=== PATIENT | male | born 1970 | race Caucasian/White ===

== ENCOUNTER 2019-06-27 16:59 | Inpatient (IN) | payer OTHER ==
[2019-06-27] MEDS ORDERED: VANCOMYCIN 1 GM/VIAL ONE (17:51)
[2019-06-27] MEDS ORDERED: NA CHLORIDE 0.9% 2,000 ML ONE (17:52)
[2019-06-27] MEDS ORDERED: NA CHLORIDE 0.9% 250 ML ONE (17:52)
[2019-06-27] MEDS ORDERED: ACETAMINOPHEN 500 MG TAB ONE (18:08)
--- NOTE | 2019-06-27 18:09 | RAD REPORT ---
EXAM DESCRIPTION: CT - Head Brain Wo Cont - 06/27/2019 6:03 pm CLINICAL HISTORY: MENTAL STATUS CHANGE Headache, drowsiness COMPARISON: HEAD BRAIN W O CONTRAST dated 05/18/2010 TECHNIQUE: All CT scans are performed using dose optimization technique as appropriate and may inclu de automated exposure control or mA/KV adjustment according to patient size. FINDINGS: No intracranial hemorrhage, hydrocephalus or extra-axial fluid collection.No areas of brai n edema or evidence of midline shift. The paranasal sinuses and mastoids are clear. The calvarium is intact. IMPRESSION: No acute intracranial abnormality.
[2019-06-27 18:15] LABS: Absolute Lymphocytes (CBC) 0.4 K/uL (0.7-4.9); Basophils % 0.1 % (0-1.3); Hematocrit 46.2 % (39.6-49.0); Lymphocytes % 2.4 % (15.3-44.8); MPV 8.9 fL (7.6-11.3); RBC Red Blood Cell Count 5.11 M/uL (4.33-5.43)
[2019-06-27 18:17] LABS: Protime INR 1.44
[2019-06-27 18:26] LABS: Bilirubin Direct 0.4 mg/dL (0-0.2); Bilirubin Total 1.3 mg/dL (0.2-1.0); Potassium 3.4 mmol/L (3.5-5.1); Protein, Total 7.5 g/dL (6.4-8.2); Troponin (Emerg Dept Use Only) 0.29 ng/mL (0.0-0.045)
[2019-06-27] MEDS ORDERED: ONDANSETRON 4 MG/2 ML VIAL ONE (18:28)
[2019-06-27 18:41] LABS: Blood Morphology Comment NOT SEEN (NOT SEEN); Platelet Estimate DECR
--- NOTE | 2019-06-27 18:41 | EDPHYS ---
Physician Documentation [facility] Name: Faizan Banegas Age: 49 yrs Sex: Male : 1970 Arrival Date: 06/27/2019 Time: 17:01 Bed 7 Private MD: ED Physician Tan Ang HPI: 06/26 18:00 This 49 yrs old Male presents to ER via Wheelchair with complaints of Leg jr8 Swelling, Fever. 18:00 The patient reports fever, with an emergency department temperature of 102.4 degrees jr8 Fahrenheit. Onset: The symptoms/episode began/occurred acutely, today. Modifying factors: there are no obvious modifying factors. Associated signs and symptoms: Pertinent positives: altered mental status,\E\ swelling and erythema to right leg. Severity of symptoms: At their worst the symptoms were moderate in the emergency department the symptoms are unchanged. The patient has not experienced similar symptoms in the past. The patient has not recently seen a physician. Family stated that he was acting normal yesterday after work. Had no rash to right lower leg. Today altered with fever and red rash and swelling to right leg . Historical: - Allergies: 17:32 No Known Allergies; iw - PMHx: 17:32 Atrial Fib; Cellulitis; iw - Immunization history:: Adult Immunizations up to date. - Social history:: Smoking status: Patient denies any tobacco usage or history of. ROS: 18:37 Eyes: Negative for injury, pain, redness, and discharge, ENT: Negative for injury, jr8 pain, and discharge, Neck: Negative for injury, pain, and swelling, Cardiovascular: Negative for chest pain, palpitations, and edema, Respiratory: Negative for shortness of breath, cough, wheezing, and pleuritic chest pain, Abdomen/GI: Negative for abdominal pain, nausea, vomiting, diarrhea, and constipation, Back: Negative for injury and pain, MS/Extremity: Negative for injury and deformity. 18:37 Constitutional: Positive for fever, malaise. 18:37 Skin: Positive for cellulitis. 18:37 Neuro: Positive for altered mental status. Exam: 18:37 Eyes: Pupils equal round and reactive to light, extra-ocular motions intact. Lids and jr8 lashes normal. Conjunctiva and sclera are non-icteric and not injected. Cornea within normal limits. Periorbital areas with no swelling, redness, or edema. ENT: Nares patent. No nasal discharge, no septal abnormalities noted. Tympanic membranes are normal and external auditory canals are clear. Oropharynx with no redness, swelling, or masses, exudates, or evidence of obstruction, uvula midline. Mucous membranes moist. Neck: Trachea midline, no thyromegaly or masses palpated, and no cervical lymphadenopathy. Supple, full range of motion without nuchal rigidity, or vertebral point tenderness. No Meningismus. Respiratory: Lungs have equal breath sounds bilaterally, clear to auscultation and percussion. No rales, rhonchi or wheezes noted. No increased work of breathing, no retractions or nasal flaring. Abdomen/GI: Soft, non-tender, with normal bowel sounds. No distension or tympany. No guarding or rebound. No evidence of tenderness throughout. Back: No spinal tenderness. No costovertebral tenderness. Full range of motion. MS/ Extremity: Pulses equal, no cyanosis. Neurovascular intact. Full, normal range of motion. 18:37 Cardiovascular: Rate: tachycardic, Rhythm: irregularly irregular, Pulses: Pulses are 2+ in right radial artery, right dorsalis pedis artery, left radial artery and left dorsalis pedis artery. Heart sounds: normal, normal S1and S2, Edema: 1+ edema to level of left midcalf, left ankle, left foot, right midcalf, right ankle and right foot, JVD: is not appreciated. 18:37 Skin: cellulitis, that is moderate, on the right lower leg from ankle to knee . 18:56 ECG was reviewed by the Attending Physician. [facility] Vital Signs: 17:34 BP 145 / 99; Pulse 110; Resp 20 S; Temp 102.4(O); Pulse Ox 97% on R/A; Weight 99.79 kg; iw 18:27 BP 119 / 97; Pulse 111; Resp 28; Pulse Ox 96% on R/A; em 19:46 BP 107 / 72; Pulse 114; Resp 20; Pulse Ox 98% ; ll1 19:51 Temp 99.8; ll1 MDM: 17:41 Patient medically screened. [facility] 18:37 Data reviewed: vital signs, nurses notes, lab test result(s), EKG, radiologic studies, [facility] CT scan, plain films. Data interpreted: Pulse oximetry: on room air is 96 %. Interpretation: normal. Counseling: I had a detailed discussion with the patient and/or guardian regarding: the historical points, exam findings, and any diagnostic results supporting the discharge/admit diagnosis, lab results, radiology results, the need for further work-up and treatment in the hospital. Physician consultation: Jose Chamorro was called at 18:39, was contacted at 18:39, regarding admission, to the ICU, consult, patient's condition, Dr. Chamorro notified and will be passing on to Dr. Fierro upon arrival . 19:41 Post IV fluid administration reassessment for Sepsis: Sepsis focused reassessment [facility] complete. Focused Assessment performed: June 27, 2019 at 19:41 Heart: Irregular rhythm noted. Lungs: Noted to be clear bilaterally. Capillary refill examination performed. Capillary refill noted to be < 2 seconds. Peripheral pulse evaluation performed. Peripheral pulses noted to be 2+ slightly diminished. Skin examination performed. Skin noted to have normal turgor. Current vital signs reviewed: Yes. Passive leg raise examination performed. Neuro: Neurological examination did not improve from previous exam. Cardio: Cardiovascular examination improved from previous exam. Heart rate and blood pressure have improved. 06/26 17:42 Order name: Urine Culture [facility] 06/26 17:42 Order name: Basic Metabolic Panel [facility] 06/26 17:42 Order name: Blood Culture Adult (2) [facility] 06/26 17:42 Order name: CBC with Diff [facility] 06/26 17:42 Order name: CPK [facility] 06/26 17:42 Order name: Lactate [facility] 06/26 17:42 Order name: LFT's [facility] 06/26 17:42 Order name: Lipase; Complete Time: 18:31 [facility] 06/26 17:42 Order name: Procalcitonin; Complete Time: 18:47 [facility] 06/26 17:42 Order name: Protime (+inr); Complete Time: 18:21 [facility] 06/26 17:42 Order name: Ptt, Activated; Complete Time: 18:21 [facility] 06/26 17:42 Order name: Troponin (emerg Dept Use Only); Complete Time: 18:31 [facility] 06/26 17:42 Order name: Urine Microscopic Only [facility] 06/26 17:42 Order name: AMMONIA; Complete Time: 19:00 [facility] 06/26 17:43 Order name: Urine Culture EDMS 06/26 17:43 Order name: Basic Metabolic Panel; Complete Time: 18:31 EDMS 06/26 17:43 Order name: Blood Culture EDMS 06/26 17:43 Order name: CBC with Automated Diff; Complete Time: 18:47 EDMS 06/26 17:43 Order name: Creatine Phosphokinase; Complete Time: 18:31 EDMS 06/26 17:43 Order name: Lactate; Complete Time: 18:26 EDMS 06/26 17:43 Order name: Liver (Hepatic) Function; Complete Time: 18:31 EDMS 06/26 17:53 Order name: Glucose, Ancillary Testing; Complete Time: 17:58 EDMS 06/26 18:41 Order name: Manual Differential; Complete Time: 18:47 EDMS 06/26 23:56 Order name: Troponin I; Complete Time: 23:59 EDMS 06/27 03:57 Order name: Lactate EDMS 06/27 05:11 Order name: Blood Culture EDMS 06/27 05:19 Order name: CBC with Automated Diff EDMS 06/27 05:45 Order name: Protime (+INR) EDMS 06/27 05:47 Order name: Comprehensive Metabolic Panel EDMS 06/27 05:47 Order name: Phosphorus EDMS 06/26 17:42 Order name: Chest Single View XRAY; Complete Time: 19:22 [facility] 06/26 17:42 Order name: Accucheck; Complete Time: 18:31 8 06/26 17:42 Order name: Cardiac monitoring; Complete Time: 18:31 [facility] 06/26 17:42 Order name: EKG - Nurse/Tech; Complete Time: 18:06 [facility] 06/26 17:42 Order name: IV Saline Lock - Large Bore; Complete Time: 18:06 8 06/26 17:42 Order name: Labs collected and sent; Complete Time: 18:05 8 06/26 17:42 Order name: O2 Per Protocol; Complete Time: 18:05 8 06/26 17:42 Order name: O2 Sat Monitoring; Complete Time: 18:05 8 06/26 17:42 Order name: CT Head Brain wo Cont; Complete Time: 18:52 8 06/26 23:13 Order name: US; Complete Time: 23:13 EDMS 06/27 05:47 Order name: Magnesium EDMS 06/27 05:47 Order name: Thyroid Stimulating Hormone EDMS EC:56 Rate is 122 beats/min. Rhythm is irregularly irregular, A fib with No ectopy. QRS [place] jr8 is Normal. QRS interval is normal at 92 msec. QT interval is prolonged at 487 msec. Q waves are Present in leads III, aVF, V1, V2, V3. T waves are Normal. No ST changes noted. Clinical impression: Acute pericarditis. Interpreted by me. Reviewed by me. Administered Medications: 18:18 Drug: Acetaminophen 1000 mg Route: PO; em 19:49 Follow up: Response: No adverse reaction; RASS: Alert and Calm (0) ll1 18:18 Drug: Cefepime 1 grams Route: IVPB; Rate: 200 ml/hr; Infused Over: 30 mins; Site: right em antecubital; 19:25 Follow up: IV Status: Completed infusion; IV Intake: 200ml lw1 18:20 Drug: NS 0.9% (30 ml/kg) 30 ml/kg Route: IV; Rate: bolus; Site: right antecubital; em 18:22 Drug: Zofran (Ondansetron) 4 mg Route: IVP; Site: right antecubital; em 19:43 Follow up: Response: No adverse reaction; Nausea is decreased ll1 19:27 Drug: vancoMYCIN 1 grams Route: IVPB; Infused Over: 2 hrs; Site: right antecubital; lw1 19:43 Follow up: Response: No adverse reaction; IV Status: Completed infusion ll1 19:30 Drug: Lovenox 1 mg/kg Route: Sub-Q; Site: right lower abdomen; ll1 06/27 04:30 Follow up: Response: No adverse reaction 1 06/26 19:30 Drug: Potassium Chloride 40 mEq Route: PO; ll1 06/27 04:29 Follow up: Response: No adverse reaction 1 Point of Care Testing: Blood Glucose: 06/26 17:40 Blood Glucose: 131 mg/dL; em Ranges: Critical Glucose Levels:Adult <50 mg/dl or >400 mg/dl <40 mg/dl or >180 mg/dl Disposition: 06/27 11:04 Co-signature as Attending Physician, Tan Ang MD I agree with the assessment and chadd plan of care. Disposition: 06/27/19 18:40 Hospitalization ordered by Alexandrea Fierro for Inpatient Admission. Preliminary diagnosis are Severe sepsis, Cellulitis of right lower limb, Non-ST elevation (NSTEMI) myocardial infarction. - Bed requested for Telemetry/MedSurg (Inpatient). - Status is Inpatient Admission. bp - Condition is Fair. - Problem is new. - Symptoms have improved. Signatures: Dispatcher [employer] EDMS Avril Mccray bd Adilene Fontenot, RN Kavya Samayoa RN Tan Judge MD MD cha Munoz, Edgar, RN Anai Kingsley, RN PRICILA iw Cody Younger, PA PA jr8 Nikko Vazquez RN Vin Nunez RN RN ll1 Chen Lozoya RN RN lw1 Corrections: (The following items were deleted from the chart) 06/26 19:30 18:40 Hospitalization Ordered by Alexandrea Fierro MD for Inpatient Admission. Preliminary diagnosis is Severe sepsis; Cellulitis of right lower limb; Non-ST elevation (NSTEMI) myocardial infarction. Bed requested for Intensive Care Unit. Status is Inpatient Admission. Condition is Fair. Problem is new. Symptoms have improved. jr8 06/27 09:11 06/26 19:30 06/27/2019 18:40 Hospitalization Ordered by Alexandrea Fierro MD for Inpatient dw Admission. Preliminary diagnosis is Severe sepsis; Cellulitis of right lower limb; Non-ST elevation (NSTEMI) myocardial infarction. Bed requested for [facility] ER HOLD. Status is Inpatient Admission. Condition is Fair. Problem is new. Symptoms have improved. 06/27 09:12 09:11 06/27/2019 18:40 Hospitalization Ordered by Alexandrea Fierro MD for Inpatient bd Admission. Preliminary diagnosis is Severe sepsis; Cellulitis of right lower limb; Non-ST elevation (NSTEMI) myocardial infarction. Bed requested for Telemetry/MedSurg (Inpatient). Status is Inpatient Admission. Condition is Fair. Problem is new. Symptoms have improved. dw 09:12 09:12 06/27/2019 18:40 Hospitalization Ordered by Alexandrea Fierro MD for Inpatient dw Admission. Preliminary diagnosis is Severe sepsis; Cellulitis of right lower limb; Non-ST elevation (NSTEMI) myocardial infarction. Bed requested for Telemetry/MedSurg (Inpatient). Status is Inpatient Admission. Condition is Fair. Problem is new. Symptoms have improved. bd 10:41 09:12 06/27/2019 18:40 Hospitalization Ordered by Alexandrea Fierro MD for Inpatient bp Admission. Preliminary diagnosis is Severe sepsis; Cellulitis of right lower limb; Non-ST elevation (NSTEMI) myocardial infarction. Bed requested for Telemetry/MedSurg (Inpatient). Status is Inpatient Admission. Condition is Fair. Problem is new. Symptoms have improved. dw
--- NOTE | 2019-06-27 18:41 | ER ---
Nurse's Notes [facility] Name: Faizan Banegas Age: 49 yrs Sex: Male : 1970 Arrival Date: 06/27/2019 Time: 17:01 Bed 7 Private MD: Diagnosis: Severe sepsis;Cellulitis of right lower limb;Non-ST elevation (NSTEMI) myocardial infarction Presentation: 06/26 17:31 Chief complaint: Patient's son or daughter states: last night got home from work around iw 830 pm and pt was not really responding to him, pt has been asleep all night and most of day has not been out of bed, fever started today, also noticed redness to RLE today, has hx of lymphedema. Coronavirus screen: The patient has NOT traveled to [place] in the past 14 days. Proceed with normal triage procedures. Ebola Screen: Patient negative for fever greater than or equal to 101.5 degrees Fahrenheit, and additional compatible Ebola Virus Disease symptoms Patient denies exposure to infectious person. Patient denies travel to an Ebola-affected area in the 21 days before illness onset. No symptoms or risks identified at this time. Risk Assessment: Do you want to hurt yourself or someone else? Patient reports no desire to harm self or others. 17:31 Method Of Arrival: Wheelchair iw 17:31 Acuity: CHRISTO 2 iw 17:35 Initial Sepsis Screen: Does the patient meet any 2 criteria? Temp <36.0*C (96.8*F)) or iw > 38.3*C (100.9*F). HR > 90 bpm. Does the patient have a suspected source of infection? Yes: Skin breakdown/wound. 19:48 Onset of symptoms is unknown. ll1 Historical: - Allergies: 17:32 No Known Allergies; iw - PMHx: 17:32 Atrial Fib; Cellulitis; iw - Immunization history:: Adult Immunizations up to date. - Social history:: Smoking status: Patient denies any tobacco usage or history of. Screenin:40 Abuse screen: Denies threats or abuse. no apparent signs noted. Nutritional screening: em No deficits noted. Tuberculosis screening: No symptoms or risk factors identified. Fall Risk None identified. Assessment: 17:40 General: Appears in no apparent distress. obese, Behavior is cooperative, drowsy, em Smells of urine. Pain: Denies pain. Neuro: Level of Consciousness is awake, stuporous. Cardiovascular: Denies chest pain, Capillary refill < 3 seconds Patient's skin is warm and dry. Rhythm is atrial fibrillation. Respiratory: Airway is patent Respiratory effort is even, unlabored, Respiratory pattern is regular, symmetrical. GI: Abdomen is round Patient currently denies nausea. Derm: Skin is intact, is healthy with good turgor, Skin is pink, warm \T\ dry. redness and swelling noted to right lower leg. Musculoskeletal: Capillary refill < 3 seconds, Range of motion: intact in all extremities. 18:01 Reassessment: wheeled to CT via stretcher. em 18:18 Reassessment: became nauseated and vomited bile, provider notified, received order for em Zofran 4 mg IV. 19:44 Reassessment: No changes from previously documented assessment. Patient and/or family ll1 updated on plan of care and expected duration. Pain level reassessed. Patient is alert, oriented x 3, equal unlabored respirations, skin warm/dry/pink. To bedside commode with liquid brown stool, approximately 200 ml. Tolerated well. Back to bed, repositioned. No further N/V. Awaiting ICU bed assignment. Family at bedside. Vital Signs: 17:34 BP 145 / 99; Pulse 110; Resp 20 S; Temp 102.4(O); Pulse Ox 97% on R/A; Weight 99.79 kg; iw 18:27 BP 119 / 97; Pulse 111; Resp 28; Pulse Ox 96% on R/A; em 19:46 BP 107 / 72; Pulse 114; Resp 20; Pulse Ox 98% ; ll1 19:51 Temp 99.8; ll1 Vitals: 19:46 Cardiac Rhythm Assessment Atrial fibrillation. ll1 ED Course: 17:01 Patient arrived in ED. as 17:32 Triage completed. iw 17:34 Arm band placed on. iw 17:36 Ponce Marrero, PRICILA is Primary Nurse. em 17:40 First set of blood cultures drawn by me. jb1 17:41 Tan Ang MD is Attending Physician. chadd 17:41 Cody Younger PA is PHCP. jr8 17:49 Patient has correct armband on for positive identification. Placed in gown. Bed in low iw position. Side rails up X2. 17:55 Second set of blood cultures drawn by me. jb1 18:00 Initial lab(s) drawn, by me, sent to lab. Inserted saline lock: 20 gauge in right jb1 antecubital area, using aseptic technique. Blood collected. 18:00 EKG done, by ED staff, reviewed by Cody DALY. jb1 18:07 CT Head Brain wo Cont In Process Unspecified. EDMS 18:34 Chest Single View XRAY In Process Unspecified. EDMS 18:39 Alexandrea Fierro MD is Hospitalizing Provider. jr8 19:05 IV discontinued, intact, bleeding controlled, Pressure dressing applied. jb1 19:05 Inserted saline lock: 22 gauge in right forearm, using aseptic technique. jb1 21:49 No provider procedures requiring assistance completed. IV is patent, with fluids rv infusing freely, with good blood return, Flushed right forearm Patient admitted, IV remains in place. 21:56 Ultrasound completed. Patient tolerated well. sg3 Administered Medications: 18:18 Drug: Acetaminophen 1000 mg Route: PO; em 19:49 Follow up: Response: No adverse reaction; RASS: Alert and Calm (0) ll1 18:18 Drug: Cefepime 1 grams Route: IVPB; Rate: 200 ml/hr; Infused Over: 30 mins; Site: right em antecubital; 19:25 Follow up: IV Status: Completed infusion; IV Intake: 200ml lw1 18:20 Drug: NS 0.9% (30 ml/kg) 30 ml/kg Route: IV; Rate: bolus; Site: right antecubital; em 18:22 Drug: Zofran (Ondansetron) 4 mg Route: IVP; Site: right antecubital; em 19:43 Follow up: Response: No adverse reaction; Nausea is decreased ll1 19:27 Drug: vancoMYCIN 1 grams Route: IVPB; Infused Over: 2 hrs; Site: right antecubital; lw1 19:43 Follow up: Response: No adverse reaction; IV Status: Completed infusion ll1 19:30 Drug: Lovenox 1 mg/kg Route: Sub-Q; Site: right lower abdomen; ll1 03 04:30 Follow up: Response: No adverse reaction ll1 06/26 19:30 Drug: Potassium Chloride 40 mEq Route: PO; ll1 06/27 04:29 Follow up: Response: No adverse reaction ll1 Point of Care Testing: Blood Glucose: 06/26 17:40 Blood Glucose: 131 mg/dL; em Ranges: Intake: 19:25 IV: 200ml; Total: 200ml. lw1 Outcome: 18:40 Decision to Hospitalize by Provider. jr8 21:50 Admitted to ER Hold. Please see [facility] for further documentation. rv 21:50 Condition: good 21:50 Instructed on the need for admit, Demonstrated understanding of instructions. 06/27 10:41 Patient left the ED. bp Signatures: Dispatcher [employer] EDMS LongMomo obrien jb1 Tan Ang MD MD cha Munoz, Edgar, RN RN em Margarita De La Fuente Irene RN RN Cody Lagos PA PA jr8 Nikko Vazquez RN RN bp Elvira Wong sg3 Trevor Castanon RN RN rv Lewis, Lynsay, RN RN ll1 Chen Lozoya RN RN lw1 Corrections: (The following items were deleted from the chart) 06/26 19:12 17:40 General: Appears in no apparent distress. obese, Behavior is cooperative, drowsy, em Smells of urine. em 19:12 17:40 Derm: Skin is intact, is healthy with good turgor, Skin is pink, warm \T\ dry. em em
--- NOTE | 2019-06-27 19:13 | RAD REPORT ---
EXAM DESCRIPTION: RAD - Chest Single View - 06/27/2019 6:29 pm CLINICAL HISTORY: FEVER Chest pain. COMPARISON: Chest Single View dated 08/28/2015; Chest Single View dated 08/14/2015; Chest Single View d ated 08/11/2015; Chest Single View dated 08/10/2015 FINDINGS: Portable technique limits examination quality. Mild interstitial opacities are present bilaterally. The heart is mildly enlarged in size. No displac ed fractures. IMPRESSION: Mild CHF.
[2019-06-27] MEDS ORDERED: ENOXAPARIN 100 MG/ML SYR SQ ONE (19:29)
[2019-06-27] MEDS ORDERED: POTASSIUM CL SA 10 MEQ TAB PO ONE (19:29)
[2019-06-27] MEDS ORDERED: PIPER/TAZO/NS 4.5gm 4.5 GM/100 ML BAG IVPB ONE (19:37)
[2019-06-27] MEDS ORDERED: HYDROCORTISONE SUC 100 MG INJ IV ONE (19:39)
[2019-06-27 22:25] VITALS: BMI 31.1
[2019-06-27] MEDS ORDERED: HYDROCORTISONE SUC 100 MG INJ ONE (22:39)
[2019-06-27] MEDS ORDERED: PIPERACIL/TAZO 4.5 GM VIAL IV ONE (22:40)
[2019-06-27] MEDS ORDERED: NA CHLORIDE 0.9% 100 ML IV ONE (22:40)
--- NOTE | 2019-06-27 23:11 | RAD REPORT ---
EXAM DESCRIPTION: US - Extremity Venous Uni Ltd - 06/27/2019 9:58 pm CLINICAL HISTORY: DVT Leg swelling and edema. COMPARISON: Extrem Venous W Compress Francisco J dated 08/28/2015 FINDINGS: Right lower extremity venous system was interrogated with Doppler technique. Normal flow, compressibility and augmentation was noted. There is no DVT present. IMPRESSION: No evidence of right lower extremity deep venous thrombosis.
[2019-06-28] MEDS ORDERED: NA CHLORIDE 0.9% 2,000 ML ONE (00:44)
[2019-06-28] MEDS ORDERED: ACETAMINOPHEN 650MG/RECT SUPP RECT PRN (00:49)
[2019-06-28] MEDS: NA CHLORIDE 0.9% 1,000 ML IV SCH ×4 (00:49→21:30)
[2019-06-28] MEDS: PIPER/TAZO/NS 4.5gm 4.5 GM/100 ML BAG IVPB SCH ×3 (02:00→13:50)
[2019-06-28] MEDS ORDERED: VANCOMYCIN 1.75 GM in NA CHLORIDE 0.9% 500 ML IVPB SCH ×2 (02:00→10:00)
[2019-06-28] MEDS ORDERED: PIPERACIL/TAZO 4.5 GM VIAL IV ONE (02:34)
[2019-06-28] MEDS ORDERED: NA CHLORIDE 0.9% 100 ML IV ONE (02:34)
[2019-06-28 05:11] LABS: Absolute Lymphocytes (CBC) 0.3 K/uL (0.7-4.9); Basophils % 0.2 % (0-1.3); Hematocrit 43.3 % (39.6-49.0); Lymphocytes % 2.4 % (15.3-44.8); MPV 8.9 fL (7.6-11.3); RBC Red Blood Cell Count 4.73 M/uL (4.33-5.43)
--- NOTE | 2019-06-28 05:32 | P.HP ---
Certification for Inpatient Patient admitted to: Inpatient With expected LOS: >2 Midnights Patient will require the following post-hospital care: None Practitioner: I am a practitioner with admitting privileges, knowledge of patient current condition, hospital course, and medical plan of care. Services: Services provided to patient in accordance with Admission requirements found in Title 42 Section 412.3 of the Code of Federal Regulations Patient History Date of Service: 06/27/19 Reason for admission: Right lower extremity cellulitis with septic shock History of Present Illness: Patient is a 49-year-old gentleman who has a history of morbid obesity status post gastric bypass surgery. Patient has lost over 220 lb. He had been doing well up until 24 hr ago when his son noticed that he was not acting like himself. He was more lethargic and he would wake up around dinner time. When his son started he did answers questions but he went right back to sleep. His son thought that was bizarre because patient normally is wide awake till midnight. The next morning patient was acting the same way. Patient had EMS called and he was brought to the hospital. In the emergency room patient was found to have cellulitis of the right lower extremity and septic shock. Patient will be admitted to the hospital for further evaluation. Allergies No Known Drug Allergies Allergy (Verified 08/19/14 04:14) Unknown No Known Allergies Allergy (Uncoded 08/28/15 20:19) Unknown Home Medications: Atorvastatin Calcium [Lipitor*] 20 mg PO BEDTIME 08/10/15 Lisinopril/Hydrochlorothiazide [Zestoretic 20-25 mg Tablet] 1 tab PO DAILY 08/09 Metformin HCl [Glucophage] 1 tab PO BID 08/10/15 Rivaroxaban [Xarelto] 20 mg PO BEDTIME 08/10/15 Amox/Clavulanate [Augmentin 875-125 Tab] 1 each PO BID #20 tab 08/31/15 - Past Medical/Surgical History Diabetic: Yes -: cellulitis -: a fib -: htn -: DM -: sleep apnea -: left knee sx -: posterior neck biopsy - Family History Mother Medical History: Hypertension - Social History Smoking Status: Unknown if ever smoked Review of Systems 10-point ROS is otherwise unremarkable Physical Examination - Vital Signs Temperature: 98.7 F Blood Pressure: 116/72 Pulse: 98 Respirations: 24 Pulse Ox (%): 97 - Physical Exam General: Alert, In no apparent distress, Oriented x3, Confused HEENT: Atraumatic, Normocephalic Neck: Supple, 2+ carotid pulse no bruit, JVD not distended, No Thyromegaly Respiratory: Clear to auscultation bilaterally, Normal air movement Cardiovascular: Normal pulses, Regular rate/rhythm, Normal S1 S2, No murmurs Gastrointestinal: Normal bowel sounds, Soft and benign, Non-distended, No tenderness, No rebound, No guarding Musculoskeletal: No clubbing Integumentary: Skin lesion, Tenderness/swelling, Erythema, Warmth Neurological: Normal strength at 5/5 x4 extr, Normal tone, Sensation intact, Cranial nerves 3-12 intact, Normal reflexes 2+, Abnormal gait - Studies Laboratory Data (last 24 hrs) 06/27/19 17:55: PT 16.7 H, INR 1.44, APTT 35.2 06/27/19 17:55: WBC 16.5 H, Hgb 15.3, Hct 46.2, Plt Count 151 L 06/27/19 17:55: Sodium 134 L, Potassium 3.4 L, BUN 24 H, Creatinine 1.31 H, Glucose 118 H, Total Bilirubin 1.3 H, AST 39 H, ALT 24, Alkaline Phosphatase 65 , Lipase 82 Assessment & Plan - Problems (Diagnosis) (1) Septic shock Current Visit: Yes Status: Acute (2) Cellulitis of leg, right Current Visit: No Status: Acute (3) Atrial fibrillation Onset Date: 08/29/15 Current Visit: No Status: Chronic (4) Dehydration Onset Date: 08/11/15 Current Visit: No Status: Acute (5) Diabetes mellitus Onset Date: 08/11/15 Current Visit: No Status: Acute (6) Lymphedema of left lower extremity Onset Date: 08/29/15 Current Visit: No Status: Acute (7) Morbid obesity Current Visit: No Status: Acute (8) Sleep apnea Current Visit: No Status: Acute - Plan 1. Continue with IV antibiotic 2. Continue with local wound care 3. Wound care consultation 4. Gentle IV hydration 5. Monitor CBC 6. Strict blood sugar monitoring 7. Pain control 8. GI and DVT prophylaxis Discharge Plan: Home Plan to discharge in: Greater than 2 days - Advance Directives Does patient have a Living Will: No Does patient have a Durable POA for Healthcare: No - Code Status/Comfort Care Code Status Assessed: Yes Code Status: Full Code Critical Care: No Time Spent Managing PTS Care (In Minutes): 45
[2019-06-28 05:40] LABS: Protime INR 1.23
[2019-06-28 05:41] LABS: Urine Amorphous Sediment 1+ /HPF (NONE SEEN); Urine Culture Reflex Order NOT NEEDED; Urine RBC <5 /HPF (NONE SEEN); Urine Urothelial Cells <5 /HPF (NONE SEEN)
[2019-06-28 05:42] LABS: Urine Bacteria 20-50 /HPF (NONE SEEN)
[2019-06-28 05:47] LABS: Albumin 2.6 g/dL (3.4-5.0); Magnesium 1.7 mg/dL (1.8-2.4); Phosphorus 2.2 mg/dL (2.5-4.9); Potassium 3.6 mmol/L (3.5-5.1); Protein, Total 6.7 g/dL (6.4-8.2); Thyroid Stimulating Hormone 0.472 uIU/mL (0.360-3.740)
[2019-06-28] MEDS ORDERED: POTASSIUM PHOS 30 MM in NA CHLORIDE 0.9% 500 ML IV ONE (05:59)
[2019-06-28] MEDS ORDERED: Magnesium Sulfate 2gm IVPB 2 G/50 ML BAG IV ONE ×2 (05:59→06:23)
[2019-06-28] MEDS ORDERED: HYDROCORTISONE SUC 100 MG INJ IV SCH (06:00)
[2019-06-28] MEDS ORDERED: HYDROCORTISONE SUC 100 MG INJ ONE (06:24)
[2019-06-28] MEDS: POTASSIUM 25 MEQ EFFERV TAB PO SCH ×2 (06:35→09:00)
[2019-06-28] MEDS ORDERED: ENOXAPARIN 40 MG/0.4 ML SQ ONE (08:44)
[2019-06-28] MEDS ORDERED: POTASSIUM 25 MEQ EFFERV TAB ONE (08:44)
[2019-06-28] MEDS ORDERED: NA CHLORIDE 0.9% 1,000 ML ONE (08:44)
[2019-06-28] MEDS ORDERED: ENOXAPARIN 40 MG/0.4 ML SQ SCH (09:00)
[2019-06-28] MEDS: ONDANSETRON 4 MG/2 ML VIAL IV PRN ×2 (11:21→18:46)
--- NOTE | 2019-06-28 15:34 | EKG ---
Test Date: 2019-06-27 Test Time: 17:43:24 Loss Mitigation Specialist: JASSIT MEASUREMENT RESULTS: Intervals: Rate: 122 PA: QRSD: 92 QT: 342 QTc: 487 [place]: P: PA: QRS: -21 T: 41 INTERPRETIVE STATEMENTS: Atrial fibrillation with rapid ventricular response Inferior infarct, age undetermined Anterior infarct, age undetermined Abnormal ECG Compared to ECG 08/28/2015 16:49:31 No significant changes Electronically Signed On 06-28-19 15:33:19 HEEL WASHER STRINGING MACHINE OPERATOR by Taiwo Mooney
[2019-06-28] MEDS: VANCOMYCIN 1.75 GM in NA CHLORIDE 0.9% 500 ML IVPB SCH (15:40)
[2019-06-28] MEDS: ACETAMINOPHEN 500 MG TAB PO PRN (18:53)
--- NOTE | 2019-06-28 19:32 | CON ---
History Of Present Illness: Mr. Banegas is 49. He comes to the hospital, confused, disoriented. His EKG showed atrial fib and his cardiac enzymes are abnormal. All of Mr. Banegas' EKGs show AFib that are in our hospital record. I believe he has been deemed a chronic AFib patient sometime ago. He underwent a gastric sleeve surgery and his weight decreased from in the mid 400s to what it is today 217 pounds. I do not think he has seen me in at least 4 or 5 years , so we are not 100% sure he has been in AFib. The entire time we will have to investigate our office records and try to obtain other EKGs. In any event, he is not bothered by chest pain or palpitations. He was brought in by his family because he appeared to be confused and disoriented and he has signs and symptoms of septicemia with cellulitis of his right leg. He has had numerous episodes of cellulitis in the past. He does not use tobacco. Does not have dyslipidemia or diabetes. Physical Examination: General: He is alert, oriented, pleasant, not in distress. Vital Signs: 5 feet 10 inches, 217 pounds. Blood pressure 124/77, pulse 94, respirations 18. Lungs: Clear. Heart: Seems to be fairly regular, although a little bit faster than usual. Distal pulses are palpable. There is redness and tenderness and extra warmth of the skin on his right calf anterior and posterior. Diagnostic Data: His electrocardiogram shows AFib. No infarction, injury, or ischemia. Laboratory Data: Reveals a troponin of 0.18 and 0.29. His procalcitonin level was elevated. Impression: I think the atrial fibrillation is chronic. With his age of 49 with hypertension, he has A CHADsVASc score high enough to justify giving him chronic anticoagulation, something he is not on now. I am not sure we should attempt to reestablish sinus rhythm at this point. I think his atrial fibrillation is chronic. Regarding his troponins, their elevation could be all due to the procalcitonin or to the sepsis as indicated by the procalcitonin and by the other physical findings so doing the echocardiogram and nuclear stress test are very worthwhile things to do in the case of Mr. Banegas. We will schedule those for tomorrow. CHIRAG Voice ID: [id number] Report ID: [id number] MTDD
--- NOTE | 2019-06-28 19:56 | PN ---
Date of Progress Note: 06/28/2019 Subjective: The patient is seen and examined. Chart reviewed and case discussed with RN. Family at the bedside. Treatment plan explained, all questions answered. Patient asking for some water. He has not had any further nausea or vomiting. Medications: List reviewed. Physical Examination: Vital Signs: Temperature 97.6, heart rate 96, blood pressure 117/78, respirations 21, O2 of 96% on r oom air. General: Awake, alert, oriented x3, in some mild distress due to pain, ill-appearing obese male. BM I 31.1. CV: S1, S2. Regular rate and rhythm. Peripheral pulses present. Respiratory: Moving air well bilaterally. No wheezing or stridor. No use of accessory muscles. Gastrointestinal: Abdomen is soft, nontender, nondistended. Positive bowel sounds. No guarding or rigidity. Extremities: No clubbing or cyanosis. Patient has right lower extremity edema. Neurologic: Cranial nerves 2 through 12 intact grossly. No focal neurological deficit. Speech is n ormal. Skin: Patient has erythema of the right lower extremity, swelling, no pain to palpation, and does fe el warm to touch. Laboratory Data: Sodium 137, potassium 3.6, chloride 108, CO2 of 21, BUN 23, creatinine 1.13, glucos e 113. Lactate 1.1. Calcium 7.4. Phosphorus 2.2. Magnesium 1.7. AST 42, ALT 25. Troponin 0.18. Albumin 2.6. Procalcitonin was 8.49. TSH 0.472. WBC 14.6, hemoglobin and hematocrit 14.3 and 43.3 , platelets 113. Blood cultures are pending. Imaging: Doppler sonogram is negative for right lower extremity DVT. Chest x-ray on personal review shows mild CHF. Head CT scan is negative for any acute changes. Assessment: A 49-year-old male with 1.Septic shock. The patient's blood pressure improved with IV fluid resuscitation, currently in the 1 teens. We will continue to monitor. Patient has high white blood cell count, elevated procalcito natalie, and troponin leak. 2.Cellulitis of the right lower extremity. We will demarcate leg and continue with IV antibiotics. Cultures have been obtained. Continue to elevate right lower extremity. We will switch IV antibiot ics from Zosyn to cefepime as the patient has some elevated kidney function to avoid further nephroto xicity with vancomycin. 3.Hypokalemia, corrected. We will continue to monitor. 4.Hypophosphatemia. We will replace and monitor. 5.Hypomagnesemia. We will replace and monitor. 6.Elevated liver enzyme, possibly fatty liver disease. 7.Elevated troponin level likely due to septic shock and congestive heart failure. Consult Cardiolo gy. 8.Congestive heart failure, seems to be new onset. There is no history of previous congestive heart failure. Echocardiogram from 2016 showed an EF of 59%. We will obtain echocardiogram. 9.Acute kidney injury, creatinine now improved, likely due to sepsis. 10.Deep vein thrombosis prophylaxis, addressed. Patient is on Lovenox. Plan: We will continue to monitor closely. Plan as above, likely discharge in the next 48 to 72 denise rs depending on clinical improvement. /DAVID Voice ID: [id number] Report ID: [id number]
[2019-06-28] MEDS ORDERED: CEFEPIME 2 GM in NA CHLORIDE 0.9% 100 ML IV SCH (21:00)
[2019-06-28] MEDS: ENOXAPARIN 100 MG/ML SYR SQ SCH (21:30)
[2019-06-28] MEDS: CEFEPIME/SWI 2gm 2 GM/20 ML SYR IVP SCH (21:31)
[2019-06-29 04:38] LABS: Absolute Lymphocytes (CBC) 0.5 K/uL (0.7-4.9); Basophils % 0.1 % (0-1.3); Hematocrit 38.7 % (39.6-49.0); Lymphocytes % 6.6 % (15.3-44.8); MPV 8.9 fL (7.6-11.3); RBC Red Blood Cell Count 4.22 M/uL (4.33-5.43)
[2019-06-29 04:52] LABS: Potassium 3.8 mmol/L (3.5-5.1)
[2019-06-29 04:53] LABS: Albumin 2.4 g/dL (3.4-5.0); Bilirubin Total 0.5 mg/dL (0.2-1.0); Protein, Total 6.2 g/dL (6.4-8.2)
[2019-06-29 06:00] LABS: Magnesium 2.5 mg/dL (1.8-2.4); Phosphorus 1.7 mg/dL (2.5-4.9)
[2019-06-29] MEDS ORDERED: POTASSIUM PHOS IN 0.9 % NACL 15 MMOL/250 ML BAG IV ONE (07:00)
[2019-06-29] MEDS ORDERED: REGADENOSON 0.4 MG/5 ML SYR IV ONE (08:18)
[2019-06-29] MEDS: ENOXAPARIN 100 MG/ML SYR SQ SCH ×2 (08:37→21:22)
[2019-06-29] MEDS: CEFEPIME/SWI 2gm 2 GM/20 ML SYR IVP SCH ×2 (08:37→21:26)
[2019-06-29] MEDS: VANCOMYCIN 1.75 GM in NA CHLORIDE 0.9% 500 ML IVPB SCH (08:38)
[2019-06-29] MEDS: POTASSIUM 25 MEQ EFFERV TAB PO SCH (08:39)
[2019-06-29] MEDS: ONDANSETRON 4 MG/2 ML VIAL IV PRN ×2 (09:54→16:36)
[2019-06-29] MEDS: HYDROCODONE/APAP 7.5/325 MG TAB PO PRN ×2 (12:31→21:21)
[2019-06-29] MEDS: NA CHLORIDE 0.9% 1,000 ML IV SCH ×2 (12:31→16:36)
--- NOTE | 2019-06-29 13:06 | ECHO ---
HEIGHT: 5 ft 10 in WEIGHT: 217 lb 0 oz DATE OF STUDY: 06/29/[address]: Ellyn Munroe MD 2-DIMENSIONAL: YES M.MODE: YES DOPPLER: YES COLOR FLOW: YES TDS: PORTABLE: DEFINITY: BUBBLE STUDY: DIAGNOSIS: CONGESTIVE HEART FAILURE, NEW ONSET CARDIAC HISTORY: CATHERIZATION: NO SURGERY: NO PROSTHETIC VALVE: NO PACEMAKER: NO MEASUREMENTS (cm) DIASTOLIC (NORMALS) SYSTOLIC (NORMALS) IVSd 1.2 (0.6-1.2) LA Diam 4.0 (1.9-4.0) LVEF 63% LVIDd 4.7 (3.5-5.7) LVIDs 3.1 (2.0-3.5) %FS 34% LVPWd 1.2 (0.6-1.2) Ao Diam 2.9 (2.0-3.7) 2 DIMENSIONAL ASSESSMENT: RIGHT ATRIUM: NORMAL LEFT ATRIUM: NORMAL RIGHT VENTRICLE: NORMAL LEFT VENTRICLE: NORMAL TRICUSPID VALVE: NORMAL MITRAL VALVE: NORMAL PULMONIC VALVE: NORMAL AORTIC VALVE: NORMAL PERICARDIAL EFFUSION: NONE AORTIC ROOT: NORMAL LEFT VENTRICULAR WALL MOTION: NORMAL DOPPLER/COLOR FLOW: NORMAL COMMENTS: ATRIAL FIBRILLATION. NORMAL LEFT ATRIUM SIZE. NORMAL LEFT VENTRICULAR SIZE AND FUNCTION. NO WALL MOTION ABNORMALITY. NO THROMBUS. TECHNOLOGIST: SKYE LU
--- NOTE | 2019-06-29 13:12 | PN ---
Mr. Banegas was seen by Dr. Mooney on 06/28/2019. He has what appears to be chronic atrial fibrillat ion. Anticoagulation was suggested. He had sepsis, elevated procalcitonin, which explained his elev ated troponin. However, because of his risk factors and his atrial fibrillation and his troponin, an echocardiogram and a stress test have been ordered. Both of those are pending. He remains in atria l fibrillation. He is on Lovenox for now. We will see what the echo and stress test shows before shona harris any final decisions. His heart rate today is 93. He is afebrile. ZAHEER/DAVID Voice ID: [id number] Report ID: [id number]
--- NOTE | 2019-06-29 15:14 | RAD REPORT ---
EXAM DESCRIPTION: NM - Rest Stress Cardiac Imaging - 06/29/2019 3:04 pm CLINICAL HISTORY: Chest pain. COMPARISON: None. TECHNIQUE: The patient was administered approximately 10mCi of Tc 99m Sestamibi prior to resting SPE CT imaging of the heart. The patient was then administered approximately 30 mCi of Tc 99m Sestamibi f ollowing exercise or pharmacologic stress. Multiplanar SPECT images were reviewed. FINDINGS: There is uniformity of radiotracer uptake involving the entire left ventricular myocardiu m on rest and stress images. The left ventricular ejection fraction equals 58% IMPRESSION: Negative for a myocardial perfusion defect
[2019-06-29] MEDS: carvediloL 25 MG TAB PO SCH (16:35)
--- NOTE | 2019-06-29 20:18 | PN ---
Subjective: Patient is seen and examined. Chart reviewed and case discussed with RN and Dr. Sabillon . Patient went for cardiac stress test this morning and results are negative. Overall, patient stat es he feels better, however, his lower extremity erythema and edema still continues to progress. No significant improvement. Pain is not controlled. Asking for something stronger than Tylenol. Medications: List reviewed. Physical Examination: Vital Signs: Temperature 98.9, heart rate 91, blood pressure 150/92, respirations 17, O2 of 98% on r oom air. General: Awake, alert, oriented x3. Mildly ill-appearing obese male. BMI 31. CV: S1, S2. Regular rate and rhythm. Peripheral pulses present. Respiratory: Moving air well bilaterally. No wheezing or stridor. Gastrointestinal: Abdomen is soft, nontender, nondistended. Positive bowel sounds. Extremities: No clubbing, cyanosis. Patient has right lower extremity edema. Skin: Erythema of the right lower extremity, still contained within the demarcation. Has warm to to uch. Neurologic: Nonfocal. Laboratory Data: Sodium 141, potassium 3.8, chloride 110, CO2 of 28, BUN 21, creatinine 1, glucose 8 6, calcium 7.7. Phosphorus 1.7, magnesium 2.5, AST 35, ALT 24, albumin 2.4, triglycerides 94, choles terol 89, LDL 41, HDL 29. Procalcitonin trending down now 4.25. WBC is 7.8, hemoglobin and hematocr it is 13.1 and 38.7, platelets 101, neutrophils 88.6%. Blood cultures, no growth to date. Echocardi ogram shows EF of 63%, atrial fibrillation, normal left atrium size, normal left ventricular size and function. No wall motion abnormality. No thrombus. Cardiac stress test is negative for myocardial perfusion defect. Assessment: A 49-year-old male with: 1.Septic shock. Blood pressure is improved now in the 150s. Patient felt like still has elevated h eart rate secondary to his atrial fibrillation. His cultures are still pending at this time. White blood cell count has normalized. Sepsis is secondary to cellulitis, which has not shown much clinica l improvement. 2.Cellulitis of the right lower extremity. Redness and warmth still present. WBC count, however, i s improved. Currently on cefepime and vancomycin. ID has been consulted. 3.Hypokalemia. We will replace and monitor. 4.Hypophosphatemia. We will give replacement dose and monitor. 5.Hypomagnesemia. Replace and monitor. 6.Chronic atrial fibrillation. Patient is currently on anticoagulation with Lovenox, not taking any thing at home. We will add Coreg. Appreciate Dr. Mooney' input. 7.Elevated cardiac enzymes, likely secondary to septic shock, congestive heart failure, and atrial f ibrillation. Patient's stress test is negative. Echocardiogram shows normal ejection fraction. 8.Diastolic congestive heart failure. Ejection fraction of 63%. Continue congestive heart failure guidelines. We will cut down gentle IV fluid hydration due to sepsis. 9.Acute kidney injury. Creatinine is improved. We will continue to monitor. 10.Deep venous thrombosis prophylaxis with Lovenox. Plan: Likely discharge in the next 48 to 72 hours depending on clinical response. /DAVID Voice ID: [id number] Report ID: [id number]
[2019-06-30] MEDS: VANCOMYCIN 1.75 GM in NA CHLORIDE 0.9% 500 ML IVPB SCH ×2 (02:06→14:13)
[2019-06-30] MEDS: NA CHLORIDE 0.9% 1,000 ML IV SCH (04:20)
[2019-06-30 05:34] LABS: Absolute Lymphocytes (CBC) 0.9 K/uL (0.7-4.9); Basophils % 0.2 % (0-1.3); Lymphocytes % 17.3 % (15.3-44.8); MPV 9.4 fL (7.6-11.3); RBC Red Blood Cell Count 4.37 M/uL (4.33-5.43)
[2019-06-30 05:51] LABS: ALT/SGPT 28 U/L (12-78); AST/SGOT 30 U/L (15-37); Albumin 2.3 g/dL (3.4-5.0); Alkaline Phosphatase 60 U/L (45-117); BUN Blood Urea Nitrogen 15 mg/dL (7-18); Bicarbonate 28 mmol/L (21-32); Bilirubin Total 0.5 mg/dL (0.2-1.0); Glucose Level 82 mg/dL (74-106); Potassium 3.7 mmol/L (3.5-5.1); Protein, Total 6.2 g/dL (6.4-8.2); Sodium Level 143 mmol/L (136-145)
[2019-06-30] MEDS: carvediloL 25 MG TAB PO SCH (06:04)
[2019-06-30 06:50] LABS: Phosphorus 1.7 mg/dL (2.5-4.9)
[2019-06-30] MEDS: ENOXAPARIN 100 MG/ML SYR SQ SCH (07:55)
[2019-06-30] MEDS: VALSARTAN 160 MG TAB PO SCH (07:55)
[2019-06-30] MEDS: CEFEPIME/SWI 2gm 2 GM/20 ML SYR IVP SCH ×2 (07:55→20:19)
--- NOTE | 2019-06-30 07:55 | TREADPHA ---
DX: CHEST PAIN Date of Study: 06/29/2019 Ht: 5 10 Wt: 217 lb 0 oz Consulting Physician: HARISH MEDICATIONS: TYLENOL, LOVENOX, ZOFRAN HISTORY: 49 YEAR OLD MALE WITH COMPLAINTS OF CHEST PAIN AND LEG SWELLING. MEDICAL HISTORY OF ATRIAL FIBRILLATION, HYPERTENSION AND CELLULITIS. PHYSICIAL EXAMINATION: RESTING B.P.: 136/97 RESTING H.R.: 74 RESTING EKG: ATRIAL FIBRILLATION, ANTERIOR MYOCARDIAL INFARCTION. PROTOCOL: LEXISCAN EXERCISE TIME: 3:30 B.P. AT PEAK STRESS: 142/93 IMPRESSION: LEXISCAN INJECTED. CARDIOLITE INJECTED PER PROTOCOL. SEE NUCLEA R MEDICINE REPORT. NO SUPRAVENTRICULAR TACHYCARDIA. NO VENTRICULAR TACHYCARDIA. NON DIAGNOSTIC EKG WITH LEXISCAN STRESS.
[2019-06-30] MEDS: hydroCHLOROthiazide 12.5 MG CAP PO SCH (07:56)
[2019-06-30] MEDS: POTASSIUM 25 MEQ EFFERV TAB PO SCH (07:56)
[2019-06-30] MEDS: HYDROCODONE/APAP 7.5/325 MG TAB PO PRN ×2 (08:16→20:18)
[2019-06-30] MEDS ORDERED: POTASSIUM CL SA 10 MEQ TAB PO ONE (09:00)
[2019-06-30] MEDS ORDERED: [UNRECOGNIZED DRUG - OTHER] PO SCH (09:00)
[2019-06-30] MEDS: ONDANSETRON 4 MG/2 ML VIAL IV PRN (12:12)
--- NOTE | 2019-06-30 14:24 | PN ---
Date of Progress Note: 06/30/2019 Subjective: Patient seen and examined. Chart reviewed and case discussed with RN and Dr. Kaplan. T he patient still having significant amount of swelling and tenderness in his lower extremity. Case d iscussed with Dr. Mooney. Patient was switched over to oral anticoagulation today. Patient states h e is concerned about oral anticoagulation due to cost. Medications: List reviewed. Physical Examination: Vital Signs: Temperature 98.4, heart rate 82, blood pressure 131/99, respirations 18, O2 99% on room air. General: Awake, alert, oriented x3, in some mild distress, ill-appearing male. Obese. BMI 31. CV: S1, S2, irregularly irregular. Peripheral pulses present. Respiratory: Moving air well bilaterally. No wheezing or stridor. No use of accessory muscles. Gastrointestinal: Abdomen is soft, nontender, nondistended. Positive bowel sounds. No guarding or rigidity. Extremities: No clubbing or cyanosis. Patient has edema of the right lower extremity. Skin: Right lower extremity erythema, warm to touch. No tenderness. Neurologic: Nonfocal. Laboratory Data: Sodium 143, potassium 3.7, chloride 111, CO2 28, BUN 15, creatinine 0.8. Glucose 8 2, calcium 7.9, phosphorus 1.7. Albumin 2.3. WBC 5.3, H and H 13.1 and 40, platelets 115, neutrophi ls 71%. Blood cultures show no growth to date. Urine cultures, no growth, final. Assessment: A 49-year-old male with. 1.Septic shock, significantly improved. No longer in sepsis. Blood pressure is improved. Sepsis i s secondary to right lower extremity cellulitis. White blood cell count is improved; however, clinic ally still very erythematous, swollen, and warm to touch. Infectious Disease consultation has been o btained. 2.Cellulitis of the right lower extremity. WBC count is normal. Left shift has improved; however, still has redness and warmth and we will follow up with Infectious Disease recommendations. 3.Hypophosphatemia. We will replace and monitor. 4.Chronic atrial fibrillation. We will switch over from Lovenox to Eliquis. Patient has had noncom pliance in the past with anticoagulation and following up. He has been counseled. He understands th at he has a risk for stroke with continued atrial fibrillation and to prevent stroke, he has to be on blood thinners. He voiced understanding. Adjust Coreg dose. We will decrease to 12.5 b.i.d. His heart rate is in 60s. 5.Elevated cardiac enzymes secondary to septic shock, congestive heart failure, atrial fibrillation. Stress test negative. Normal ejection fraction. 6.Diastolic congestive heart failure, ejection fraction 63%. 7.Acute kidney injury, normalized. We will continue to monitor. Avoid nonsteroidal anti-inflammato ry drugs. 8.Deep venous thrombosis prophylaxis. The patient will be switched over to Eliquis. Plan: Likely discharge in the 24-48 hours depending on clinical improvement pending ID eval. TINSLEY/DAVID Voice ID: [id number] Report ID: [id number]
--- NOTE | 2019-06-30 15:33 | CON ---
History Of Present Illness: This is a 49-year-old male coming in with right lower extremity cellulit is. Patient has longstanding history of lymphedema and morbid obesity after which he had a gastric s leeve done in 2016. Since then, patient has lost significant amount of weight, currently at 217, hav ing leg discomfort. Patient also had chills, but does not recall any fevers. He was brought in by liana owens to the emergency room where he was started on IV antibiotic for right lower extremity celluliti s, currently being treated with vancomycin and cefepime. Past Medical History: Lymphedema, morbid obesity, cellulitis, atrial fibrillation, hypertension, dea betes mellitus, left knee surgery, posterior neck biopsy. Social History: Nonsmoker, nondrinker. Family History: Noncontributory. Medications: Vancomycin, cefepime. See MARs for other medications. Allergies: NO KNOWN DRUG ALLERGIES. Review of Systems: A 10-point review was performed. Physical Examination: General: This is a 49-year-old male, lying in bed, not in any acute cardiopulmonary distress. Vital Signs: Temperature 98.4, pulse 82, respirations 18, blood pressure 131/99. Extremities: Positive examination findings are right lower extremity erythematous changes with incre ased warmth and swelling and pain. No other finding on examination is significant. Laboratory Data: WBC count from 16,000 has gone down to 5,300; hemoglobin 13.1; platelets are 115. Chemistry shows sodium 143, potassium 3.7, chloride 111, bicarb 28, BUN 15, creatinine 0.8, glucose i s 82, albumin is 2.3. Microdata: Blood cultures are negative for 24 hours. Assessment And Plan: Right lower extremity cellulitis in a 49-year-old male with longstanding histor y of lymphedema, diabetes, which has resolved since patient has lost significant amount of weight. C kar, on vancomycin and cefepime. Total course of antibiotics should be 2 weeks, can be switched to oral once patient starts to improve. Also, keep leg elevated when possible. We will recommend e mpiric treatment with doxycycline and Cipro on discharge to complete a 2-week course. Thank you Dr. Munroe for consult. NF/MODL Voice ID: [id number] Report ID: [id number]
[2019-06-30] MEDS: carvediloL 12.5 MG TAB PO SCH (18:26)
[2019-06-30] MEDS: APIXABAN 5 MG TABLET PO SCH (20:19)
[2019-07-01] MEDS: VANCOMYCIN 1.75 GM in NA CHLORIDE 0.9% 500 ML IVPB SCH ×2 (02:08→14:56)
[2019-07-01] MEDS: carvediloL 12.5 MG TAB PO SCH ×2 (05:00→18:00)
[2019-07-01 06:06] LABS: Absolute Lymphocytes (CBC) 0.8 K/uL (0.7-4.9); Basophils % 0.2 % (0-1.3); Hematocrit 37.1 % (39.6-49.0); Lymphocytes % 15.7 % (15.3-44.8); MPV 9.9 fL (7.6-11.3); RBC Red Blood Cell Count 4.05 M/uL (4.33-5.43)
[2019-07-01 08:05] LABS: ALT/SGPT 29 U/L (12-78); AST/SGOT 27 U/L (15-37); Albumin 2.2 g/dL (3.4-5.0); Alkaline Phosphatase 68 U/L (45-117); BUN Blood Urea Nitrogen 12 mg/dL (7-18); Bicarbonate 30 mmol/L (21-32); Bilirubin Total 0.6 mg/dL (0.2-1.0); Glucose Level 89 mg/dL (74-106); Phosphorus 1.9 mg/dL (2.5-4.9); Potassium 3.4 mmol/L (3.5-5.1); Protein, Total 6.4 g/dL (6.4-8.2); Sodium Level 142 mmol/L (136-145)
[2019-07-01] MEDS: hydroCHLOROthiazide 12.5 MG CAP PO SCH (09:25)
[2019-07-01] MEDS: APIXABAN 5 MG TABLET PO SCH ×2 (09:25→20:37)
[2019-07-01] MEDS: VALSARTAN 160 MG TAB PO SCH (09:25)
[2019-07-01] MEDS: POTASSIUM 25 MEQ EFFERV TAB PO SCH (09:26)
[2019-07-01] MEDS: CEFEPIME/SWI 2gm 2 GM/20 ML SYR IVP SCH ×2 (09:26→20:38)
[2019-07-01] MEDS ORDERED: POTASSIUM 25 MEQ EFFERV TAB PO ONE (09:28)
--- NOTE | 2019-07-01 18:14 | PN ---
Date of Progress Note: 07/01/2019 Subjective: Patient is seen and examined. Chart reviewed and case discussed with RN. Overall, lynda ent is doing better. Case discussed Dr. Kaplan. Still has erythema of his lower extremity, but impr oving slowly. Medications List: Reviewed. Physical Examination: Vital Signs: Temperature 98, heart rate 73, blood pressure 137/86, respirations 16, O2 of 98% on robert m air. General: Awake, alert, and oriented x3, in some mild distress, ill-appearing male, obese, BMI 31. CV: S1, S2, irregularly irregular. Peripheral pulses present. Respiratory: Moving air well bilaterally. No wheezing or stridor. Gastrointestinal: Abdomen is soft, nontender, nondistended. Positive bowel sounds. Extremities: Patient has right lower extremity edema. Neurologic: Nonfocal. Skin: Patient has erythema of the right lower extremity slightly improved. Edema is also going down , still warm to touch. Laboratory Data: Sodium 142, potassium 3.4, chloride 108, CO2 of 38, BUN 12, creatinine 0.75, glucos e 89, calcium 8.2, phosphorus 1.9, magnesium 2, albumin 2.2. WBC 5.3, H and H 12.3 and 37.1, platele ts 146. Blood cultures, no growth to date. Urine culture, no growth to date. Assessment: A 49-year-old male with: 1.Sepsis improving secondary to cellulitis. White blood cell count normalized. 2.Right lower extremity cellulitis. Continues to have erythema and swelling, slightly improved. We will place ice packs, elevate. Continue with IV antibiotics. Appreciate Infectious Disease input w jyotsna Kaplan. 3.Hypophosphatemia, replace and monitor. 4.Hypomagnesemia, replace and monitor. 5.Chronic atrial fibrillation, on Eliquis. Continue with Coreg. 6.Elevated cardiac enzymes secondary to septic shock, congestive heart failure, and atrial fibrillat ion. Stress test negative. Normal ejection fraction. 7.Diastolic congestive heart failure, ejection fraction of 63%. We will continue to monitor I's and O's, free fluid restriction. 8.Acute kidney injury, normalized. Avoid NSAIDs. Continue to monitor. 9.Thrombocytopenia. We will continue to monitor closely. No need for transfusion at this time. 10.Deep venous thrombosis prophylaxis. Patient is on Eliquis. Plan: Likely discharge in a.m. and continues to improve. /DAVID Voice ID: [id number] Report ID: [id number]
[2019-07-01] MEDS: POTASS/SODIUM PHOSPHATE 1 PKT POWD.PACK PO SCH ×3 (20:37→22:21)
[2019-07-01] MEDS: HYDROCODONE/APAP 7.5/325 MG TAB PO PRN (21:44)
[2019-07-02] MEDS: VANCOMYCIN 1.75 GM in NA CHLORIDE 0.9% 500 ML IVPB SCH (01:51)
[2019-07-02] MEDS: carvediloL 12.5 MG TAB PO SCH (05:16)
[2019-07-02] MEDS: ACETAMINOPHEN 500 MG TAB PO PRN (05:16)
[2019-07-02 05:50] LABS: Absolute Lymphocytes (CBC) 1.1 K/uL (0.7-4.9); Basophils % 0.4 % (0-1.3); Hematocrit 37.4 % (39.6-49.0); Lymphocytes % 17.1 % (15.3-44.8); MPV 9.3 fL (7.6-11.3); RBC Red Blood Cell Count 4.13 M/uL (4.33-5.43)
[2019-07-02 05:56] LABS: ALT/SGPT 28 U/L (12-78); AST/SGOT 28 U/L (15-37); Albumin 2.1 g/dL (3.4-5.0); Alkaline Phosphatase 64 U/L (45-117); BUN Blood Urea Nitrogen 10 mg/dL (7-18); Bicarbonate 29 mmol/L (21-32); Bilirubin Total 0.6 mg/dL (0.2-1.0); Glucose Level 86 mg/dL (74-106); Magnesium 1.6 mg/dL (1.8-2.4); Phosphorus 2.9 mg/dL (2.5-4.9); Potassium 3.1 mmol/L (3.5-5.1); Protein, Total 5.9 g/dL (6.4-8.2); Sodium Level 139 mmol/L (136-145)
[2019-07-02 09:00] VITALS: BP 133/61; TEMP 98
[2019-07-02] MEDS ORDERED: POTASSIUM CL SA 10 MEQ TAB PO ONE (09:00)
[2019-07-02] MEDS ORDERED: MAGNESIUM SULFATE 1 gm IVPB 1 GM/100 ML BAG IV ONE (09:00)
[2019-07-02] MEDS: CEFEPIME/SWI 2gm 2 GM/20 ML SYR IVP SCH (09:00)
[2019-07-02] MEDS: POTASSIUM 25 MEQ EFFERV TAB PO SCH (09:00)
[2019-07-02] MEDS: VALSARTAN 160 MG TAB PO SCH (09:24)
[2019-07-02] MEDS: hydroCHLOROthiazide 12.5 MG CAP PO SCH (09:24)
[2019-07-02] MEDS: APIXABAN 5 MG TABLET PO SCH (09:24)
[2019-07-02 09:59] VITALS: O2SAT 97
--- NOTE | 2019-07-02 14:45 | PN ---
Subjective: Patient lying in bed. Denies any headache, nausea, vomiting, chest pain, abdominal pain , constipation, diarrhea. Feeling slightly better, being discharged home today on antibiotics. No e pisodes of fever since the patient has been admitted. Objective: Vital Signs: Temperature 98, pulse 73, respirations 17, blood pressure 133/61. Extremities: Examination of right leg shows hyperpigmentation with erythematous changes, 2+ edema. Laboratory Data: Shows WBC 6.3, hemoglobin 12.4, platelets 157. Sodium 139, potassium 3.1, chloride 105, bicarb 29, BUN 10, creatinine 0.65, glucose is 86, albumin is 2.1. Assessment And Plan: Right lower extremity cellulitis, protein-calorie malnourishment, history of ly mphedema, and morbid obesity. Continue antibiotic and supportive care. Total course of 14 days. Ke ep legs elevated when possible. NF/MODL Voice ID: [id number] Report ID: [id number]
--- NOTE | 2019-07-02 22:56 | DS ---
Date of Discharge: 07/02/2019 Consultants: 1.Dr. Kaplan with Infectious Disease. 2.Dr. Mooney and Dr. Sabillon with Cardiology. Admitting Diagnoses: 1.Septic shock. 2.Cellulitis of the right leg. 3.Atrial fibrillation. 4.Dehydration. 5.Diabetes mellitus type 2. 6.Lymphedema of the lower extremities. 7.Morbid obesity. 8.Obstructive sleep apnea. Discharge Diagnoses: 1.Sepsis with shock secondary to cellulitis, resolved. 2.Right lower extremity cellulitis, improving. Cultures negative. 3.Hypophosphatemia, replaced. 4.Hypomagnesemia, replaced. 5.Chronic atrial fibrillation, now on Eliquis and Coreg. 6.Elevated troponin level secondary to septic shock, congestive heart failure and atrial fibrillatio n. Stress test negative. Echo normal. 7.Diastolic congestive heart failure, EF of 63%, stable. 8.Acute kidney injury normalized. 9.Thrombocytopenia, resolved. 10.Severe protein-calorie malnutrition. Hospital Course: Patient is a 49-year-old male with past medical history of hypertension, atrial fib rillation, diabetes, which is non-insulin requiring, comes in with cellulitis of the right lower extr emity, was in septic shock. Patient had elevated white blood cell count 23074 with procalcitonin of 8.4%. Lactate was normal. Patient was started on broad-spectrum IV antibiotics. Cultures were obta ined. His blood cultures and urine culture did not show any growth. The patient's white blood cell count initially normalized and clinically patient was doing better, did have multiple electrolyte abn ormalities including low potassium and magnesium as well as phosphorus. These were replaced. The andria seals also has chronic atrial fibrillation, but has not been compliant with medications. He was seen by Cardiology due to his elevated troponin levels. This was thought to be due to stress from atrial fibrillation, sepsis, congestive heart failure. He was started on Eliquis for anticoagulation. Nicholas alvarez started on Lovenox. Patient was counseled regarding the importance of continuing with anticoa gulation to prevent stroke due to his atrial fibrillation. Patient was seen by Dr. Mooney with Cardi ology and Dr. Sabillon. The patient had a pharmacological stress test on 06/29/2019, which was negati ve. His echocardiogram was normal, showed a normal ejection fraction. Overall, patient did well. H e did have slow improvement in his lower extremity with continued swelling, erythema. Patient does h ave chronic lymphedema in his legs. He was instructed to keep his leg elevated above heart level and to use ice packs. Patient was also seen by Infectious Disease, Dr. Kaplan, recommended oral antibio tics with doxycycline and Cipro to finish off course. Patient was then afebrile. White count was no rmal. No signs of sepsis. He was doing well, tolerating his diet, ambulating okay. He was then karen ared for discharge, sent home in a stable condition. Activity: As tolerated. Medications: As per medication reconciliation list. Diet: Diabetic. Followup: Follow up with primary care physician in 2-3 days. Follow up with Infectious Disease Dr. Kaplan in 2 weeks. Follow up with powder carrier, Dr. Mooney, in 2 weeks. Return to ER for worsening condition. It should be noted that the patient was switched to Xarelto on discharge as his insurance co-pay for the Eliquis was over 400 dollars a month. With Xarelto, he is able to have 10 dollar co-pay using [employer] coupon cards. Patient understands risks included with blood thinners, however, the benefits outwei gh the risks due to reduction in stroke. Total time spent discharging patient was 38 minutes. Physical Examination: General: Awake, alert, and oriented x3. Obese male. CV: S1, S2. Respiratory: Moving air well bilaterally. Abdomen: Abdomen is soft, nontender, nondistended. Positive bowel sounds. Extremities: No clubbing, cyanosis. Patient has lower extremity edema, worse on the right with mini mal erythema. Neurologic: Nonfocal. SA/MODL Voice ID: [id number] Report ID: [id number]
== END 2019-07-02 12:08 | disposition home or self-care (01) | DRG 871 ==
LOC: ER 16:59 → ERHOLD 19:02 → 2ND 06-28 10:25
PROVIDERS: ADMIT Hospitalist; ATTEND Hospitalist
DX: A41.9 Sepsis, unspecified organism (principal); R65.21 Severe sepsis with septic shock; E43 Unspecified severe protein-calorie malnutrition; L03.115 Cellulitis of right lower limb; N17.9 Acute kidney failure, unspecified; I48.20 Chronic atrial fibrillation, unspecified; I50.30 Unspecified diastolic (congestive) heart failure; E83.39 Other disorders of phosphorus metabolism; E83.42 Hypomagnesemia; I11.0 Hypertensive heart disease with heart failure; D69.6 Thrombocytopenia, unspecified; Z68.31 Body mass index [BMI] 31.0-31.9, adult; E11.9 Type 2 diabetes mellitus without complications
CPT/HCPCS: 36415; 70450; 71045; 78452; 80048; 80053; 80061; 80076; 80202; 81015; 82140; 82550; 82947; 83605; 83690; 83735; 84100; 84145; 84443; 84484; 85025; 85610; 85730; 87040; 87086; 87088; 93005; 93017; 93306; 93971; 96365; 96367; 96372; 96375; 99285; A9500; J0692; J1650; J1720; J2405; J2785; J3475; J7030; J7040

== ENCOUNTER 2022-03-25 00:20 | Inpatient (IN) | payer OTHER ==
[2022-03-25] MEDS ORDERED: ASPIRIN 325 MG TAB ONE (00:49)
[2022-03-25] MEDS ORDERED: NITROGLYCERIN 0.4 MG/TAB SL ONE (00:49)
[2022-03-25] MEDS ORDERED: ACETAMINOPHEN 500 MG TAB ONE (01:18)
[2022-03-25 01:24] LABS: Absolute Lymphocytes (CBC) 1.6 K/uL (0.7-4.9); MPV 8.4 fL (7.6-11.3); RBC Red Blood Cell Count 4.62 M/uL (4.33-5.43)
[2022-03-25 01:35] LABS: Albumin 3.2 g/dL (3.4-5.0); Bilirubin Total 0.7 mg/dL (0.2-1.0); Potassium 3.8 mmol/L (3.5-5.1); Protein, Total 6.7 g/dL (6.4-8.2)
[2022-03-25 01:52] LABS: Troponin High Sensitivity 498.9 pg/mL (<58.9)
[2022-03-25] MEDS ORDERED: FUROSEMIDE 40 MG/4 ML VIAL ONE (02:31)
[2022-03-25] MEDS ORDERED: ONDANSETRON 4 MG/2 ML VIAL ONE ×3 (02:34→21:26)
--- NOTE | 2022-03-25 02:44 | ER ---
Nurse's Notes [facility] Name: Faizan Banegas Age: 51 yrs Sex: Male : 1970 Arrival Date: 03/25/2022 Time: 00:26 Bed 23 Private MD: Diagnosis: Chest pain, unspecified;Acute pulmonary edema Presentation: 03/25 00:38 Chief complaint: Patient states: I just couldn't fall asleep tonight, I felt heart aa9 burn, I took some Tums It didn't help, I took 3 Advil and it didn't help, I feel short of breath when I lay down, its like someone is sitting on my chest. Coronavirus screen: Vaccine status: Patient reports receiving the 2nd dose of the covid vaccine. Ebola Screen: No symptoms or risks identified at this time. Initial Sepsis Screen: Does the patient meet any 2 criteria? No. Patient's initial sepsis screen is negative. Does the patient have a suspected source of infection? No. Patient's initial sepsis screen is negative. Risk Assessment: Do you want to hurt yourself or someone else? Patient reports no desire to harm self or others. Onset of symptoms was March 25, 2022. 00:38 Method Of Arrival: Ambulatory aa9 00:38 Acuity: CHRISTO 3 aa9 Triage Assessment: 00:41 General: Appears uncomfortable, obese, Behavior is cooperative, appropriate for age, aa9 anxious. Pain: Complains of pain in chest Pain radiates to right arm and left arm Quality of pain is described as crushing, Also complains of shortness of breath. Neuro: Level of Consciousness is awake, alert, obeys commands, Oriented to person, place, time, situation. Cardiovascular: Patient's skin is warm and dry. Respiratory: Airway is patent Respiratory effort is even, unlabored. GI: Parent/caregiver reports the patient having indigestion. : No signs and/or symptoms were reported regarding the genitourinary system. Derm: Skin is intact, is healthy with good turgor. Musculoskeletal: No signs and/or symptoms reported regarding the musculoskeletal system. Historical: - Allergies: 00:40 No Known Allergies; aa9 - Home Meds: 00:40 None [Active]; aa9 - PMHx: 00:40 Atrial Fib; Cellulitis; Hypertensive disorder; aa9 - PSHx: 00:40 knee sx; gastric bypass; aa9 - Immunization history:: Client reports receiving the 2nd dose of the Covid vaccine. - Social history:: Smoking status: Patient denies any tobacco usage or history of. - Family history:: not pertinent. Screenin:44 Abuse screen: Denies threats or abuse. Denies injuries from another. Nutritional aa9 screening: No deficits noted. Tuberculosis screening: No symptoms or risk factors identified. Fall Risk None identified. Assessment: 00:45 General: Appears in no apparent distress. comfortable. Pain: Complains of pain in chest jb4 Pain does not radiate. Pain currently is 7 out of 10 on a pain scale. Neuro: Level of Consciousness is awake, alert, obeys commands, Oriented to person, place, time, situation. Cardiovascular: Patient's skin is warm and dry. Respiratory: Airway is patent Respiratory effort is even, unlabored, Respiratory pattern is regular, symmetrical. Derm: Skin is intact, Skin is pink, warm \T\ dry. Musculoskeletal: Circulation, motion, and sensation intact. Range of motion: intact in all extremities. 01:13 Reassessment: Patient appears in no apparent distress at this time. Patient and/or jb4 family updated on plan of care and expected duration. Pain level reassessed. Patient is alert, oriented x 3, equal unlabored respirations, skin warm/dry/pink. Reports that chest pain is no longer present after sublingual nitro Patient states feeling better. Patient states symptoms have improved. 02:01 Reassessment: Patient appears in no apparent distress at this time. Patient and/or jb4 family updated on plan of care and expected duration. Pain level reassessed. Patient is alert, oriented x 3, equal unlabored respirations, skin warm/dry/pink. 03:00 Reassessment: Patient appears in no apparent distress at this time. Patient and/or jb4 family updated on plan of care and expected duration. Pain level reassessed. Patient is alert, oriented x 3, equal unlabored respirations, skin warm/dry/pink. 09:22 Pain: Pain began. kc6 19:55 Reassessment: Emma, [id number]. vc1 Vital Signs: 00:38 BP 208 / 138; Pulse 64; Resp 20 S; Temp 98(O); Pulse Ox 94% on R/A; Weight 163.29 kg aa9 (R); Height 6 ft. 0 in. (182.88 cm) (R); 01:00 BP 185 / 110; Pulse 71; Resp 16; Pulse Ox 98% on R/A; jb4 01:45 BP 182 / 106; Pulse 66; Resp 14; Pulse Ox 96% on R/A; jb4 03:00 BP 172 / 118; Pulse 69; Resp 18; Pulse Ox 97% on R/A; jb4 00:38 Body Mass Index 48.82 (163.29 kg, 182.88 cm) aa9 ED Course: 00:26 Patient arrived in ED. bp1 00:26 Tomy Casillas MD is Attending Physician. rt 00:40 Triage completed. aa9 00:43 Arm band placed on. aa9 00:45 Patient has correct armband on for positive identification. Placed in gown. Bed in low jb4 position. Call light in reach. Side rails up X 1. Client placed on continuous cardiac and pulse oximetry monitoring. NIBP monitoring applied. computer programming supervisor on. 00:45 Inserted saline lock: 18 gauge in right antecubital area, using aseptic technique. jb4 Blood collected. Patient maintains SpO2 saturation greater than 95% on room air. 00:46 Ravi Bernal, PRICILA is Primary Nurse. jb4 01:01 Chest Single View XRAY In Process Unspecified. EDMS 02:44 Donta Saeed MD is Hospitalizing Provider. rt 04:00 No provider procedures requiring assistance completed. Patient admitted, IV remains in jb4 place. Administered Medications: 00:52 Drug: Nitroglycerin 0.4 mg Route: Sublingual; jb4 01:28 Follow up: Response: No adverse reaction; Marked relief of symptoms; Pain is decreased jb4 00:52 Drug: Aspirin 325 mg Route: PO; jb4 01:28 Follow up: Response: No adverse reaction jb4 01:28 Drug: Tylenol 1000 mg Route: PO; jb4 02:30 Follow up: Response: No adverse reaction; Marked relief of symptoms jb4 03:07 Drug: Lasix (furosemide) 40 mg Route: IVP; Site: right antecubital; jb4 04:58 Follow up: Response: No adverse reaction jb4 Medication: 09:23 VIS not applicable for this client. kc6 Outcome: 02:44 Decision to Hospitalize by Provider. rt 04:00 Admitted to ER Hold. Please see [facility] for further documentation. jb4 04:00 Condition: stable 04:00 Discharge instructions given to patient, family, Instructed on the need for admit, Demonstrated understanding of instructions. 03/26 07:56 Patient left the ED. Signatures: Dispatcher [employer] EDMS Kylie Barksdale RN RN Ravi Bernal RN RN jb4 Sharri Whiteside Vanessa, RN RN vc1 Krystle Reza RN RN aa9 Veda Carr RN RN kc6 Tomy Casillas MD MD rt
--- NOTE | 2022-03-25 02:45 | EDPHYS ---
Physician Documentation [facility] Name: Faizan Banegas Age: 51 yrs Sex: Male : 1970 Arrival Date: 03/25/2022 Time: 00:26 Bed 23 Private MD: ED Physician Tomy Casillas HPI: 03/25 00:36 This 51 yrs old Male presents to ER via Unassigned with complaints of Chest Pain > 30 rt y/o. 00:36 The patient or guardian reports chest pain that is located primarily in the substernal rt area. Onset: 2 hour(s) ago. The pain radiates to the right arm. Associated signs and symptoms: Pertinent positives: shortness of breath. The chest pain is described as a pressure. Duration: The patient or guardian reports multiple episodes. Modifying factors: The symptoms are alleviated by nothing. the symptoms are aggravated by nothing. Severity of pain: At its worst the pain was moderate. Patient has had intermittent chest pain since yesterday. At about 1030, he had a worsening of this chest pain, pressure-like, substernal. He associated shortness of breath. Is worse with lying down flat. Denies other aggravating or alleviating factors. Symptoms are moderate in severity, no associated symptoms.. Historical: - Allergies: 00:40 No Known Allergies; aa9 - Home Meds: 00:40 None [Active]; aa9 - PMHx: 00:40 Atrial Fib; Cellulitis; Hypertensive disorder; aa9 - PSHx: 00:40 knee sx; gastric bypass; aa9 - Immunization history:: Client reports receiving the 2nd dose of the Covid vaccine. - Social history:: Smoking status: Patient denies any tobacco usage or history of. - Family history:: not pertinent. ROS: 00:36 Constitutional: Negative for fever, chills, and weight loss, Eyes: Negative for injury, rt pain, redness, and discharge, ENT: Negative for injury, pain, and discharge, Neck: Negative for injury, pain, and swelling, Abdomen/GI: Negative for abdominal pain, nausea, vomiting, diarrhea, and constipation, MS/Extremity: Negative for injury and deformity, Skin: Negative for injury, rash, and discoloration, Neuro: Negative for headache, weakness, numbness, tingling, and seizure, Psych: Negative for depression, anxiety, suicide ideation, homicidal ideation, and hallucinations. 00:36 Cardiovascular: Positive for chest pain, Negative for edema. 00:36 Respiratory: Positive for shortness of breath, Negative for cough. Exam: 00:36 Constitutional: This is a well developed, well nourished patient who is awake, alert, rt and in no acute distress. Head/Face: Normocephalic, atraumatic. Eyes: Pupils equal round and reactive to light, extra-ocular motions intact. Lids and lashes normal. Conjunctiva and sclera are non-icteric and not injected. Cornea within normal limits. Periorbital areas with no swelling, redness, or edema. ENT: Nares patent. No nasal discharge, no septal abnormalities noted. Tympanic membranes are normal and external auditory canals are clear. Oropharynx with no redness, swelling, or masses, exudates, or evidence of obstruction, uvula midline. Mucous membranes moist. Neck: Trachea midline, no thyromegaly or masses palpated, and no cervical lymphadenopathy. Supple, full range of motion without nuchal rigidity, or vertebral point tenderness. No Meningismus. Chest/axilla: Normal chest wall appearance and motion. Nontender with no deformity. No lesions are appreciated. Cardiovascular: Regular rate and rhythm with a normal S1 and S2. No gallops, murmurs, or rubs. Normal PMI, no JVD. No pulse deficits. Respiratory: Lungs have equal breath sounds bilaterally, clear to auscultation and percussion. No rales, rhonchi or wheezes noted. No increased work of breathing, no retractions or nasal flaring. Abdomen/GI: Soft, non-tender, with normal bowel sounds. No distension or tympany. No guarding or rebound. No evidence of tenderness throughout. Skin: Warm, dry with normal turgor. Normal color with no rashes, no lesions, and no evidence of cellulitis. MS/ Extremity: Pulses equal, no cyanosis. Neurovascular intact. Full, normal range of motion. Neuro: Awake and alert, GCS 15, oriented to person, place, time, and situation. Cranial nerves II-XII grossly intact. Motor strength 5/5 in all extremities. Sensory grossly intact. Cerebellar exam normal. Normal gait. Psych: Awake, alert, with orientation to person, place and time. Behavior, mood, and affect are within normal limits. 00:36 ECG was reviewed by the Attending Physician. Vital Signs: 00:38 BP 208 / 138; Pulse 64; Resp 20 S; Temp 98(O); Pulse Ox 94% on R/A; Weight 163.29 kg aa9 (R); Height 6 ft. 0 in. (182.88 cm) (R); 01:00 BP 185 / 110; Pulse 71; Resp 16; Pulse Ox 98% on R/A; jb4 01:45 BP 182 / 106; Pulse 66; Resp 14; Pulse Ox 96% on R/A; jb4 03:00 BP 172 / 118; Pulse 69; Resp 18; Pulse Ox 97% on R/A; jb4 00:38 Body Mass Index 48.82 (163.29 kg, 182.88 cm) aa9 MDM: 00:33 Patient medically screened. rt 02:30 Differential diagnosis: acute myocardial infarction, acute pericarditis, congestive rt heart failure pneumonia, pneumothorax, pulmonary embolus. HEART Score: History: Highly Suspicious (2), ECG: Non specific repolarization disturbance / LBTB / PM (1), Age: > 45 and < 65 years (1), Risk Factors: 1 or 2 risk factors (1), Troponin: > 1 and < 3 x normal limit (1), Total Score = 6. Data reviewed: vital signs, nurses notes, lab test result(s), EKG, radiologic studies. ED course: Presents to the ED with chest pain, resolved with nitro. The patient is found to have a pulmonary edema with elevated BNP with no history of congestive heart failure. We will give patient diuretics. Patient was found to have an elevated troponin with nonspecific EKG changes. Patient does not have a STEMI. Patient will be admitted for further cardiac evaluation. Do not suspect PE, thoracic aortic dissection. 03/25 00:34 Order name: CBC with Diff; Complete Time: 01:37 rt 03/25 00:34 Order name: CMP; Complete Time: :56 rt 03/25 00:34 Order name: Lipase; Complete Time: :56 rt 03/25 00:34 Order name: Troponin High Sensitivity; Complete Time: 01:56 rt 03/25 00:34 Order name: BNP; Complete Time: 01:56 rt 03/25 04:59 Order name: SARS RAPID jb4 03/25 05:55 Order name: SARS-COV-2 Antigen Rapid; Complete Time: 12:58 EDMS 03/25 06:34 Order name: Urinalysis; Complete Time: 12:58 EDMS 03/25 07:12 Order name: Creatine Phosphokinase; Complete Time: 12:58 EDMS 03/25 07:12 Order name: CKMB Creatine Kinase MB; Complete Time: 12:58 EDMS 03/25 07:12 Order name: Troponin High Sensitivity; Complete Time: 12:58 EDMS 03/25 07:12 Order name: Lipid Profile; Complete Time: 12:58 EDMS 03/25 12:57 Order name: Troponin High Sensitivity; Complete Time: 12:58 EDMS 03/25 20:39 Order name: Troponin High Sensitivity; Complete Time: 02:15 EDMS 03/25 00:34 Order name: EKG; Complete Time: 00:35 rt 03/25 00:34 Order name: EKG - Nurse/Tech; Complete Time: 00:41 rt 03/25 00:34 Order name: Chest Single View XRAY; Complete Time: 19:13 rt 03/25 03:48 Order name: NPO; Complete Time: 03:53 sb4 03/26 03:06 Order name: CBC with Automated Diff EDMS 03/26 03:36 Order name: Basic Metabolic Panel EDMS 03/26 03:36 Order name: Phosphorus EDMS 03/26 03:36 Order name: Magnesium EDMS 03/26 03:36 Order name: Troponin High Sensitivity EDMS EC:36 Rate is 78 beats/min. Rhythm is regular, A fib with No ectopy. QRS [place] is Normal. QRS rt interval is normal. QT interval is normal. No Q waves. Clinical impression: Septal UT - age indeterminate. Interpreted by me. Administered Medications: 00:52 Drug: Nitroglycerin 0.4 mg Route: Sublingual; :28 Follow up: Response: No adverse reaction; Marked relief of symptoms; Pain is decreased 00:52 Drug: Aspirin 325 mg Route: PO; :28 Follow up: Response: No adverse reaction :28 Drug: Tylenol 1000 mg Route: PO; 4 02:30 Follow up: Response: No adverse reaction; Marked relief of symptoms 4 03:07 Drug: Lasix (furosemide) 40 mg Route: IVP; Site: right antecubital; jb4 04:58 Follow up: Response: No adverse reaction jb4 Disposition Summary: 03/25/22 02:44 Hospitalization Ordered Hospitalization Status: Observation rt Provider: Donta Saeed rt Condition: Fair rt Problem: new rt Symptoms: have improved rt Bed/Room Type: Standard rt Location: [facility] ER HOLD(03/25/22 04:08) cg Room Assignment: ERHOLD-(03/25/22 04:08) cg Diagnosis - Chest pain, unspecified rt - Acute pulmonary edema rt Forms: - Medication Reconciliation Form rt - SBAR form rt Signatures: Dispatcher [employer] EDMS Beth Roman, FRANCHESKAC [employer] Art Ndiaye [employer]Cla1 Neida Arellano RN RN cg Ravi Bernal RN RN jb4 Krystle Reza RN RN Shelli Jones PA-C PA-C sb4 Tomy Casillas MD MD rt Corrections: (The following items were deleted from the chart) 04:08 02:44 Telemetry/MedSurg (observation) rt cg 04:08 02:44 rt cg
--- NOTE | 2022-03-25 03:44 | P.HP ---
Certification for Inpatient Patient admitted to: Inpatient With expected LOS: <2 Midnights Patient will require the following post-hospital care: None Practitioner: I am a practitioner with admitting privileges, knowledge of patient current condition, hospital course, and medical plan of care. Services: Services provided to patient in accordance with Admission requirements found in Title 42 Section 412.3 of the Code of Federal Regulations <Shelli Peres - Last Filed: 03/25/22 04:07> Patient History Date of Service: 03/25/22 Primary Care Provider: Kosta Reason for admission: Acute CHF History of Present Illness: Patient is a 51-year-old male with past medical history of hypertension and chronic A. fib who presented to the ED with complaints of chest pain. Patient reports that this evening he was experiencing some chest pain, worse when lying down, causing him to be short of breath. States that it feels like someone is sitting on his chest. He reports he took Advil and Tums without relief. states she has noticed he has been fatigued over the past couple weeks and had dyspnea on exertion. Patient also reports some swelling in his legs bilaterally. He was noted to be hypertensive upon arrival- 208/138. EKG showing afib, no ST changes. His troponin is elevated at 498. BNP is 1317. Chest x-ray showed pulmonary edema and cardiomegaly. He was given aspirin and nitroglycerin with relief of his chest pain. He also received 40 mg IV lasix. Patient is admitted for further management. Home medications list reviewed: Yes - Past Medical/Surgical History Diabetic: Yes -: Lymphadema -: Chronic afib -: Hypertension -: Sleep Apnea -: left knee sx -: posterior neck biopsy -: Gastric Sleeve Psychosocial/ Personal History: Patient lives at home with his and children. - Family History Mother -: Hypertension - Social History Smoking Status: Never smoker Alcohol use: Yes CD- Drugs: No Caffeine use: Yes Place of Residence: Home <Magalie Peresia - Last Filed: 03/25/22 04:07> Date of Service: 03/25/22 <Donta Saeed - Last Filed: 03/25/22 16:46> Allergies No Known Drug Allergies Allergy (Verified 08/19/14 04:14) Unknown No Known Allergies Allergy (Uncoded 08/28/15 20:19) Unknown Home Medications: Telmisartan/Hydrochlorothiazid [Telmisartan-Hctz 80-12.5 mg Tb] 1 tab PO DAILY 06/28/19 Ciprofloxacin HCl [Cipro 500 MG Tablet] 500 mg PO BID #12 tab 07/02/19 Doxycycline Hyclate 100 mg PO BID #12 tablet 07/02/19 Rivaroxaban [Xarelto] 20 mg PO DAILY #30 tablet 07/02/19 carvediloL [Coreg*] 12.5 mg PO BID 6AM 6PM #60 tab 07/02/19 Review of Systems General: Other (Fatigue) Respiratory: SOB with Excertion, Other (Orthopnea) Cardiovascular: Chest Pain <Shelli Peres - Last Filed: 03/25/22 04:07> Physical Examination - Vital Signs Temperature: 98 F Blood Pressure: 182/106 Pulse: 66 Respirations: 14 Pulse Ox (%): 96 (room air) - Physical Exam General: Alert, In no apparent distress, Obese HEENT: Atraumatic, PERRLA, Other (xanthomas bilateral eyelids), EOMI, Sclerae nonicteric Neck: Supple, 2+ carotid pulse no bruit, No LAD, Without JVD or thyroid abnormality Respiratory: Clear to auscultation bilaterally, Normal air movement Cardiovascular: Regular rate/rhythm, Normal S1 S2, Edema Gastrointestinal: Normal bowel sounds, No tenderness Musculoskeletal: No tenderness Integumentary: No rashes Neurological: Normal speech, Normal strength at 5/5 x4 extr, Normal tone, Normal affect - Studies Laboratory Data (last 24 hrs) 03/25/22 01:05: Sodium 141, Potassium 3.8, BUN 16, Creatinine 0.84, Glucose 101, Total Bilirubin 0.7, AST 23, ALT 16, Alkaline Phosphatase 69, Lipase 82 03/25/22 01:05: WBC 5.10, Hgb 14.0, Hct 42.0, Plt Count 178 <Shelli Peres - Last Filed: 03/25/22 04:07> - Studies Laboratory Data (last 24 hrs) 03/25/22 01:05: Sodium 141, Potassium 3.8, BUN 16, Creatinine 0.84, Glucose 101, Total Bilirubin 0.7, AST 23, ALT 16, Alkaline Phosphatase 69, Lipase 82 03/25/22 01:05: WBC 5.10, Hgb 14.0, Hct 42.0, Plt Count 178 <Donta Saeed - Last Filed: 03/25/22 16:46> Assessment and Plan - Problems (Diagnosis) (1) Congestive heart failure Current Visit: Yes Status: Acute Qualifiers: Heart failure type: unspecified Heart failure chronicity: acute Qualified Code(s): I50.9 - Heart failure, unspecified (2) Hypertension Current Visit: Yes Status: Chronic Qualifiers: Hypertension type: primary hypertension Qualified Code(s): I10 - Essential (primary) hypertension (3) Venous stasis of both lower extremities Current Visit: Yes Status: Chronic (4) Atrial fibrillation Current Visit: Yes Status: Chronic Qualifiers: Atrial fibrillation type: unspecified chronic Qualified Code(s): I48.20 - Chronic atrial fibrillation, unspecified; I48.2 - Chronic atrial fibrillation (5) Elevated troponin Current Visit: Yes Status: Acute - Plan Patient is admitted for further evaluation of elevated troponin/acute CHF. Cardiology consulted. Echo ordered. Patient has not seen cardiology since he was last admitted in 2019. Patient reports that his chest pain was relieved with nitroglycerin. Will have patient NPO in case for any cardiac intervention. Trend serial cardiac enzymes. Therapeutic lovenox ordered. Aspirin and statin daily. Additional labs pending- lipid panel, TSH, magnesium. Patient has chronic afib but reports he has not been on any anticoagulation for over 2 years because his insurance does not cover it. States he only takes 1 medication for blood pressure (telmisartan/HCTZ) and he does not take it consistently. Monitor and replete electrolytes per protocol. Full code. Patient's , Emma, can be reached at [phone]. Discharge Plan: Home Plan to discharge in: 48 Hours - Advance Directives Does patient have a Living Will: No Does patient have a Durable POA for Healthcare: No - Code Status/Comfort Care Code Status Assessed: Yes Code Status: Full Code Critical Care: No Time Spent Managing Pts Care (In Minutes): 50 <Shelli Peres - Last Filed: 03/25/22 04:07> - Plan Patient seen and examined on rounds this morning. Improvement in chest pain. hypertensive start PO meds and IV PRN cardiology consulted echo ordered Time Spent Managing Pts Care (In Minutes): 75 <Donta Saeed - Last Filed: 03/25/22 16:46>
[2022-03-25] MEDS ORDERED: NITROGLYCERIN 0.4 MG/TAB SL PRN (03:51)
[2022-03-25 04:53] VITALS: BMI 50.1
[2022-03-25] MEDS ORDERED: HYDRALAZINE HCL 20 MG/ML VIAL ONE ×3 (05:42→15:06)
[2022-03-25] MEDS: HYDRALAZINE HCL 20 MG/ML VIAL IV PRN ×2 (05:47→11:19)
[2022-03-25 05:55] LABS: SARS-CoV-2 Antigen Rapid Res Negative (Negative)
[2022-03-25 06:33] LABS: Specific Gravity 1.012 (1.005-1.030); Urine Bilirubin NEGATIVE (Negative); Urine Blood Negative (Negative); Urine Clarity Clear (Clear); Urine Color Light-Yellow (Yellow); Urine Glucose NEGATIVE (Negative); Urine Protein NEGATIVE (Negative); Urine Urobilinogen Normal (Normal)
[2022-03-25 07:08] LABS: CKMB Creatine Kinase MB 9.2 ng/mL (1.0-3.6)
[2022-03-25 07:12] LABS: Troponin High Sensitivity 1478.6 pg/mL (<58.9)
[2022-03-25] MEDS ORDERED: INFLUENZA VACCINE (for 6+ mo) 0.5 ML DOSE IMVAC ONE (08:00)
[2022-03-25] MEDS ORDERED: LABETALOL 20 MG/4ML SYRINGE IV ONE ×2 (08:38→08:39)
[2022-03-25] MEDS: Enoxaparin 120 MG/0.8 ML SYR SQ SCH ×2 (09:00→21:00)
[2022-03-25] MEDS: ASPIRIN EC 81 MG TAB PO SCH (09:00)
--- NOTE | 2022-03-25 11:44 | RAD REPORT ---
EXAM DESCRIPTION: Chest Single View CLINICAL HISTORY: CHEST PAIN COMPARISON: None. FINDINGS: Single frontal radiograph view of the chest. Cardiomediastinal silhouette: Cardiomegaly. Lungs: Leads overlie the chest. Pulmonary vascular congestion. Mild bilateral interstitial opacities. No pneumothorax. Bones: No acute osseous abnormality. Upper abdomen: No abnormality identified. IMPRESSION: 1. Cardiomegaly with pulmonary edema pattern. Electronically signed by: Darwin Tejada 03/25/2022 2:05 AM TELETYPE MECHANIC Due to temporary technical issues with the PACS/Fluency reporting system, reports are being signed by the in house radiologists without review as a courtesy to insure prompt reporting. The interpreting radiologist is fully responsible for the content of the report.
--- NOTE | 2022-03-25 12:48 | EKG ---
Test Date: 2022-03-25 Test Time: 00:37:01 Edging Machine Catcher: RV MEASUREMENT RESULTS: Intervals: Rate: 78 IA: QRSD: 82 QT: 402 QTc: 458 Victor: P: IA: QRS: -5 T: 28 INTERPRETIVE STATEMENTS: Atrial fibrillation Septal infarct, age undetermined Abnormal ECG Compared to ECG 06/27/2019 17:43:24 No significant changes Electronically Signed On 03-25-22 12:47:53 PRODUCT TESTER [employer] by John Rome
[2022-03-25] MEDS: ONDANSETRON 4 MG/2 ML VIAL IV PRN ×2 (13:08→21:31)
[2022-03-25] MEDS ORDERED: HYDRALAZINE HCL 20 MG/ML VIAL IV ONE (15:00)
[2022-03-25] MEDS ORDERED: ACETAMINOPHEN 325 MG TABLET ONE ×2 (15:05→21:26)
[2022-03-25] MEDS: ACETAMINOPHEN 325 MG TABLET PO PRN ×2 (15:13→21:30)
[2022-03-25] MEDS: LOSARTAN/HCTZ 50-12.5 PO SCH (17:00)
[2022-03-25] MEDS ORDERED: PROMETHAZINE INJ 25 MG/ML AMP IV PRN (17:03)
[2022-03-25] MEDS ORDERED: ATORVASTATIN 40 MG TAB PO SCH (21:00)
[2022-03-26 03:05] LABS: Lymphocytes % 13.2 % (15.3-44.8); MCV 91.6 fL (80-100); MPV 8.4 fL (7.6-11.3); RBC Red Blood Cell Count 4.92 M/uL (4.33-5.43)
[2022-03-26 03:17] LABS: Phosphorus 3.9 mg/dL (2.5-4.9); Potassium 3.8 mmol/L (3.5-5.1)
[2022-03-26] MEDS ORDERED: LIDOCAINE 1% 20 ML MDV ONE (06:39)
[2022-03-26] MEDS ORDERED: HEPA 1000U/500MLS 2,000 UNIT/1,000 ML BAG IV ONE (06:39)
[2022-03-26] MEDS ORDERED: FENTANYL CITR 100 MCG/2 ML ONE (06:40)
[2022-03-26] MEDS ORDERED: CLOPIDOGREL 75 MG TABLET ONE (06:41)
[2022-03-26] MEDS ORDERED: ASPIRIN 325 MG TAB ONE (06:41)
[2022-03-26] MEDS ORDERED: HEPARIN 10,000 UNIT/10 ML VIAL IV ONE ×2 (06:41→07:59)
[2022-03-26] MEDS ORDERED: VERAPAMIL HCL 10 MG/4 ML VIAL IV ONE (06:41)
[2022-03-26] MEDS ORDERED: MIDAZOLAM HCL 2 MG/2 ML INJ ONE (06:41)
[2022-03-26] MEDS ORDERED: HEPARIN 5000 UNIT/ML 1 ML VIAL ONE (06:41)
[2022-03-26] MEDS ORDERED: TICAGRELOR 90 MG TABLET PO ONE (06:41)
[2022-03-26] MEDS ORDERED: ATROPINE SULF 1 MG/10 ML SYR IV ONE (06:42)
[2022-03-26] MEDS ORDERED: NA CHLORIDE 0.9% 500 ML ONE (07:25)
[2022-03-26] MEDS ORDERED: ONDANSETRON 4 MG/2 ML VIAL ONE (08:29)
[2022-03-26] MEDS: LOSARTAN/HCTZ 50-12.5 PO SCH (09:00)
[2022-03-26] MEDS: ASPIRIN EC 81 MG TAB PO SCH (09:00)
[2022-03-26] MEDS: Enoxaparin 120 MG/0.8 ML SYR SQ SCH (09:00)
[2022-03-26 10:33] VITALS: O2SAT 96
[2022-03-26 12:00] VITALS: BP 179/103; TEMP 97.9
--- NOTE | 2022-03-26 12:00 | P.DS ---
Admission Date: 03/25/22 Discharge Date: 03/26/22 Primary Care Provider: Kosta Disposition: ROUTINE DISCHARGE Discharge Condition: FAIR Reason for Admission: Acute CHF - Problems (1) Chest pain Status: Acute (2) Atrial fibrillation Status: Chronic Qualifiers: Atrial fibrillation type: unspecified chronic Qualified Code(s): I48.20 - Chronic atrial fibrillation, unspecified; I48.2 - Chronic atrial fibrillation (3) Acute on chronic diastolic heart failure Status: Acute Brief History of Present Illness: Patient is a 51-year-old male with past medical history of hypertension and chronic A. fib who presented to the ED with complaints of chest pain. Patient reported chest pain, worse when lying down, causing him to be short of breath. Symptoms associated with chest pressure, normal relieving factors. He was noted to be hypertensive upon arrival- 208/138. EKG showing afib, no ST changes. His troponin is elevated at 498. BNP is 1317. Chest x-ray showed pulmonary edema and cardiomegaly. He was given aspirin and nitroglycerin with relief of his chest pain. He also received 40 mg IV lasix. Patient was admitted for further management. Hospital Course: Patient admitted to the medical floor and started on full dose Lovenox for atrial fibrillation and elevated troponin. He received a dose of IV Lasix in the ED. patient shortness of breath significantly improved with treatment. He was seen and evaluated by cardiology. Dr. Rome performed cardiac catheterization, which is preliminary reported as no significant coronary artery disease that warrants percutaneous intervention. Patient deemed stable for discharge per cardiology. He was noncompliant with Xarelto for A. fib patient given refill for Xarelto. He is also prescribed aspirin. His other home medications resumed on discharge. Vital Signs/Physical Exam: Temp Pulse Resp BP Pulse Ox 97.9 F 88 18 179/103 H 96 03/26/22 11:59 03/26/22 11:59 03/26/22 11:59 03/26/22 11:59 03/26/22 11:59 General: Alert, In no apparent distress, Oriented x3, Obese HEENT: Mucous membr. moist/pink Neck: JVD not distended Respiratory: Clear to auscultation bilaterally, Normal air movement Cardiovascular: No edema, Regular rate/rhythm, Normal S1 S2 Gastrointestinal: Soft and benign, Non-distended, No tenderness Musculoskeletal: No tenderness Laboratory Data at Discharge: WBC 7.20 K/uL (4.3-10.9) 03/26/22 02:35 Hgb 14.8 g/dL (13.6-17.9) 03/26/22 02:35 Hct 45.0 % (39.6-49.0) 03/26/22 02:35 Plt Count 174 K/uL (152-406) 03/26/22 02:35 Sodium 135 mmol/L (136-145) L D 03/26/22 02:35 Potassium 3.8 mmol/L (3.5-5.1) 03/26/22 02:35 BUN 15 mg/dL (7-18) 03/26/22 02:35 Creatinine 0.76 mg/dL (0.55-1.3) 03/26/22 02:35 Glucose 109 mg/dL (74-106) H 03/26/22 02:35 Phosphorus 3.9 mg/dL (2.5-4.9) 03/26/22 02:35 Magnesium 2.0 mg/dL (1.8-2.4) 03/26/22 02:35 Total Bilirubin 0.7 mg/dL (0.2-1.0) 03/25/22 01:05 AST 23 U/L (15-37) 03/25/22 01:05 ALT 16 U/L (12-78) 03/25/22 01:05 Alkaline Phosphatase 69 U/L (45-117) 03/25/22 01:05 Triglycerides 54 mg/dL (<150) 03/25/22 06:41 Cholesterol 168 mg/dL (<200) 03/25/22 06:41 HDL Cholesterol 61 mg/dL (40-60) H 03/25/22 06:41 Cholesterol/HDL Ratio 2.75 03/25/22 06:41 Lipase 82 U/L (73-393) 03/25/22 01:05 Home Medications: Aspirin [Aspirin EC 81 MG] 81 mg PO DAILY #30 tab 03/26/22 Atorvastatin Calcium [Lipitor] 40 mg PO BEDTIME #30 tab 03/26/22 Rivaroxaban [Xarelto] 20 mg PO DAILY #30 tablet 03/26/22 Telmisartan/Hydrochlorothiazid [Telmisartan-Hctz 80-12.5 mg Tb] 1 each PO DAILY #30 tab 03/26/22 carvediloL [Coreg*] 12.5 mg PO BID 6AM 6PM #60 tab 03/26/22 New Medications: Aspirin [Aspirin EC 81 MG] 81 mg PO DAILY #30 tab carvediloL [Coreg*] 12.5 mg PO BID 6AM 6PM #60 tab Atorvastatin Calcium [Lipitor] 40 mg PO BEDTIME #30 tab Telmisartan/Hydrochlorothiazid [Telmisartan-Hctz 80-12.5 mg Tb] 1 each PO DAILY #30 tab Rivaroxaban [Xarelto] 20 mg PO DAILY #30 tablet Diet: AHA Activity: Ad jessica Followup: NONE,NONE [Primary Care Provider] - John Rome MD [ACTIVE - CAN ADMIT] - 1-2 Weeks Time spent managing pt's care (in minutes): 36
--- NOTE | 2022-03-26 13:39 | ECHO ---
HEIGHT: 6 ft 0 in WEIGHT: 370 lb 0 oz DATE OF STUDY: 03/26/[address]: Shelli Peres 2-DIMENSIONAL: YES M.MODE: YES DOPPLER: YES COLOR FLOW: YES TDS: YES PORTABLE: YES DEFINITY: BUBBLE STUDY: DIAGNOSIS: CONGESTIVE HEART FAILURE CARDIAC HISTORY: CATHERIZATION: YES SURGERY: PROSTHETIC VALVE: PACEMAKER: MEASUREMENTS (cm) DIASTOLIC (NORMALS) SYSTOLIC (NORMALS) IVSd 1.6 (0.6-1.2) LA Diam 4.1 (1.9-4.0) LVEF 69% LVIDd 4.1 (3.5-5.7) LVIDs 2.6 (2.0-3.5) %FS 38% LVPWd 1.7 (0.6-1.2) Ao Diam 3.3 (2.0-3.7) 2 DIMENSIONAL ASSESSMENT: RIGHT ATRIUM: NORMAL LEFT ATRIUM: ENLARGED RIGHT VENTRICLE: NORMAL LEFT VENTRICLE: LEFT VENTRICULAR HYPERTROPHY TRICUSPID VALVE: MILD TRICUSPID REGURGITATION MITRAL VALVE: MILD MITRAL REGURGITATION PULMONIC VALVE: NORMAL AORTIC VALVE: NORMAL PERICARDIAL EFFUSION: NONE AORTIC ROOT: NORMAL LEFT VENTRICULAR WALL MOTION: NORMAL DOPPLER/COLOR FLOW: SEE BELOW COMMENTS: 1. NORMAL LEFT VENTRICULAR EJECTION FRACTION 60-65% WITH NORMAL WALL MOTION 2. MODERATE CONCENTRIC LEFT VENTRICULAR HYPERTROPHY 3. LEFT ATRIAL ENLARGEMENT 4. MILD MITRAL REGURGITATION 5. MILD TRICUSPID REGURGITATION TECHNOLOGIST: ADY CARRANZA
--- NOTE | 2022-03-26 14:57 | CON ---
Date of Consultation: 03/25/2022 Reason For Consultation: Unstable angina and non-STEMI. History Of Present Illness: Mr. Banegas is who has had a history of morbid obesity, atria l fibrillation, , hypertension, has been noncompliant with his medication, has . Has not been taking his medications. Came in with blood pressure of 164/115, shortness of breath, c hest tightness, troponin of 4000, BNP was 1377, atrial fibrillation, rate of 95. Has had PND, orthop linette, pedal edema. No palpitation. No syncope. No fever or chills. Past Medical History: As stated above. Allergies: NONE. Review of Systems: Negative. Social History: Negative. Family History: Noncontributory. Medications: At home supposed to be Coreg, Xarelto, hydrochlorothiazide, but he is not ta kimberly it . Physical Examination: Vital Signs: He was in AFib with rate of 95, morbidly obese, blood pressure 164/115. HEENT negative. Neck: Supple with no bruit. Chest: Clear. Cardiac: Revealed irregularly irregular rhythm and rate with no murmurs, gallops, or rubs. Abdomen: Obese, but benign. Extremities: Revealed 1+ edema. Diagnostic Data: As stated earlier. Impression And Plan: 1.Non-ST segment elevation myocardial infarction. 2.Dyslipidemia. 3.Hypertension. 4.Possible new onset diastolic congestive heart failure. Echocardiogram is pending. Catheterizatio n will be done in the morning. He is now on with hydrochlorothiazide, hydralazine, labeta lol. We will see how he does with his blood pressure. We will see what the heart catheterization sh ows before making any further decisions. Case was discussed with Dr. Chamorro and Dr. Saeed. ZAHEER/MODL Voice ID: [id number] Report ID: [id number]
--- NOTE | 2022-03-26 15:54 | OP ---
Date of Procedure: 03/26/2022 Surgeon: LESLYE QUIROGA Procedures Performed: 1.Selective coronary angiogram. 2.Left heart catheterization. Indication: Unstable angina. Access: Right radial artery 6-Sammarinese closed with TR band. Complications: None. Bleeding: Less than 10 mL. Anesthesia: Total sedation time was 25 minutes. Description Of Procedure: After risks, benefits, and alternatives were explained, the patient agreed to the procedure and signed informed consent. The patient was brought into the cardiac ablation lab oratory, prepped and draped in the usual sterile fashion. Then, I accessed right radial artery using pediatric micropuncture kit with a 6-Sammarinese Slender sheath and took a 5-Sammarinese [place] 4.0 catheter in to the aortic root, engaged left main and then right coronary artery, took standard views, and then t he catheter was pushed over the wire into the LV. LVEDP was measured and pullback did not record any gradient. Then, I removed the catheter and the sheath, placed TR band with good hemostasis. Findings: 1.Left main; large and normal. 2.LAD; large vessel with luminal irregularities, normal diagonal branches. 3.The left circumflex; very large vessel with luminal irregularities. 4.RCA; large with luminal irregularities and it is dominant circulation. 5.Elevated LVEDP at 19 mmHg. Conclusion: 1.No significant coronary artery disease. 2.Elevated LVEDP. Plan: Medical management and diuretics. SR/MODL Voice ID: [id number] Report ID: [id number]
== END 2022-03-26 13:12 | disposition home or self-care (01) | DRG 280 ==
LOC: ER 00:20 → ERHOLD 03:40 → 2ND 03-26 10:54
PROVIDERS: ADMIT Hospitalist; ATTEND Internal Medicine
PROC: 4A023N7 Measurement of Cardiac Sampling and Pressure, Left Heart, Percutaneous Approach (ICD-10-PCS; principal; 2022-03-26)
PROC: B2111ZZ Fluoroscopy of Multiple Coronary Arteries using Low Osmolar Contrast (ICD-10-PCS; 2022-03-26)
DX: I11.0 Hypertensive heart disease with heart failure (principal); I21.4 Non-ST elevation (NSTEMI) myocardial infarction; I50.33 Acute on chronic diastolic (congestive) heart failure; I48.20 Chronic atrial fibrillation, unspecified; Z68.43 Body mass index [BMI] 50.0-59.9, adult; E66.01 Morbid (severe) obesity due to excess calories; E11.9 Type 2 diabetes mellitus without complications; E78.5 Hyperlipidemia, unspecified; I87.8 Other specified disorders of veins; T45.516A Underdosing of anticoagulants, initial encounter; Z79.01 Long term (current) use of anticoagulants; Z79.82 Long term (current) use of aspirin; Z98.84 Bariatric surgery status; Z91.120 Patient's intentional underdosing of medication regimen due to financial hardship; Z91.14 Patient's other noncompliance with medication regimen; Z79.899 Other long term (current) drug therapy; Z20.822 Contact with and (suspected) exposure to COVID-19
CPT/HCPCS: 36415; 71045; 76937; 80048; 80053; 80061; 81003; 82550; 82553; 83690; 83735; 83880; 84100; 84484; 85025; 87811; 93005; 93306; 93458; 96374; 99285; C1893; J0360; J0461; J1644; J1650; J1940; J2250; J2405; J2550; J3010; J7040; Q9966

== ENCOUNTER 2022-04-02 07:34 | Emergency (ER) | payer OTHER ==
[2022-04-02 08:19] LABS: Hematocrit 46.8 % (39.6-49.0); Lymphocytes % 17.5 % (15.3-44.8); MCV 90.8 fL (80-100); MPV 8.6 fL (7.6-11.3); RBC Red Blood Cell Count 5.15 M/uL (4.33-5.43)
--- NOTE | 2022-04-02 08:39 | RAD REPORT ---
EXAM DESCRIPTION: RAD - Chest Single View - 04/02/2022 8:24 am CLINICAL HISTORY: weakness Chest pain. COMPARISON: Chest Single View dated 03/25/2022; Chest Single View dated 06/27/2019; Chest Single View dated 08/28/2015; Chest Single View dated 08/14/2015 FINDINGS: Portable technique limits examination quality. Mild bilateral pulmonary opacities are seen likely representing pulmonary edema or pneumonia. The hea rt is mildly enlarged in size. No displaced fractures.
[2022-04-02 09:11] LABS: Potassium 3.8 mmol/L (3.5-5.1); Troponin High Sensitivity 25.3 pg/mL (<58.9)
[2022-04-02] MEDS ORDERED: NA CHLORIDE 0.9% 500 ML ONE (10:54)
--- NOTE | 2022-04-02 11:25 | RAD REPORT ---
EXAM DESCRIPTION: CT - Chest For Pe Angio - 04/02/2022 11:04 am CLINICAL HISTORY: Chest pain. Shortness of breath, palpitations COMPARISON: No comparisons TECHNIQUE: CT angiogram of the pulmonary arteries was performed with MIP. All CT scans are performed using dose optimization technique as appropriate and may include automated exposure control or mA/KV adjustment according to patient size. FINDINGS: No evidence of pulmonary thromboembolism. No acute aortic finding demonstrated. The lungs are clear. No significant pericardial or pleural fluid. No concerning bony finding. Small hiatal hernia with postsurgical changes. IMPRESSION: No evidence of pulmonary thromboembolism. No acute lung findings.
--- NOTE | 2022-04-02 12:29 | EDPHYS ---
Physician Documentation [facility] Name: Faizan Banegas Age: 51 yrs Sex: Male : 1970 Arrival Date: 04/02/2022 Time: 07:37 Bed 20 Private MD: ED Physician Rayshawn Moon HPI: 04/02 17:26 This 51 yrs old Male presents to ER via EMS with complaints of General Weakness. kdr 17:26 Patient was getting ready for work this morning when he had to use the restroom and kdr defecate. When he got up from the toilet after defecating, he became lightheaded and dizzy and had some chest discomfort/tightness. He was also short of breath. There is feeling persisted and he felt as if he might pass out. He was also diaphoretic. In general he just felt really tired. He is not experienced this before.. Onset: The symptoms/episode began/occurred suddenly, just prior to arrival. Severity of symptoms: At their worst the symptoms were very mild mild moderate in the emergency department the symptoms. The patient has not experienced similar symptoms in the past. The patient has not recently seen a physician. Historical: - Allergies: 07:44 No Known Allergies; vg1 - Home Meds: 08:09 Xarelto oral [Active]; Aspirin Oral [Active]; carvedilol oral [Active]; atorvastatin vg1 oral [Active]; telmisartan-hydrochlorothiazide oral [Active]; - PMHx: 07:44 Atrial Fib; Cellulitis; Hypertensive disorder; vg1 - PSHx: 07:44 Gastric Bypass; knee sx; vg1 - Immunization history:: Client reports receiving the 2nd dose of the Covid vaccine. - Social history:: Smoking status: Patient denies any tobacco usage or history of. ROS: 17:26 Constitutional: Negative for fever, chills, and weight loss, Eyes: Negative for injury, kdr pain, redness, and discharge, ENT: Negative for injury, pain, and discharge, Neck: Negative for injury, pain, and swelling, Cardiovascular: Negative for chest pain, palpitations, and edema, Respiratory: Negative for shortness of breath, cough, wheezing, and pleuritic chest pain, Abdomen/GI: Negative for abdominal pain, nausea, vomiting, diarrhea, and constipation, Back: Negative for injury and pain, : Negative for injury, bleeding, discharge, and swelling, MS/Extremity: Negative for injury and deformity, Skin: Negative for injury, rash, and discoloration, Psych: Negative for depression, anxiety, suicide ideation, homicidal ideation, and hallucinations, Allergy/Immunology: Negative for hives, rash, and allergies, Endocrine: Negative for neck swelling, polydipsia, polyuria, polyphagia, and marked weight changes, Hematologic/Lymphatic: Negative for swollen nodes, abnormal bleeding, and unusual bruising. 17:26 Neuro: Positive for altered mental status, dizziness, headache, weakness. Exam: 10:30 ECG was reviewed by the Attending Physician. kdr 17:26 Constitutional: This is a well developed, well nourished patient who is awake, alert, kdr and in no acute distress. Head/Face: Normocephalic, atraumatic. Eyes: Pupils equal round and reactive to light, extra-ocular motions intact. Lids and lashes normal. Conjunctiva and sclera are non-icteric and not injected. Cornea within normal limits. Periorbital areas with no swelling, redness, or edema. Neck: Trachea midline, no thyromegaly or masses palpated, and no cervical lymphadenopathy. Supple, full range of motion without nuchal rigidity, or vertebral point tenderness. No Meningismus. Chest/axilla: Normal chest wall appearance and motion. Nontender with no deformity. No lesions are appreciated. Cardiovascular: Regular rate and rhythm with a normal S1 and S2. No gallops, murmurs, or rubs. Normal PMI, no JVD. No pulse deficits. Respiratory: Lungs have equal breath sounds bilaterally, clear to auscultation and percussion. No rales, rhonchi or wheezes noted. No increased work of breathing, no retractions or nasal flaring. Abdomen/GI: Soft, non-tender, with normal bowel sounds. No distension or tympany. No guarding or rebound. No evidence of tenderness throughout. Back: No spinal tenderness. No costovertebral tenderness. Full range of motion. Skin: Warm, dry with normal turgor. Normal color with no rashes, no lesions, and no evidence of cellulitis. MS/ Extremity: Pulses equal, no cyanosis. Neurovascular intact. Full, normal range of motion. Neuro: Awake and alert, GCS 15, oriented to person, place, time, and situation. Cranial nerves II-XII grossly intact. Motor strength 5/5 in all extremities. Sensory grossly intact. Cerebellar exam normal. Normal gait. Psych: Awake, alert, with orientation to person, place and time. Behavior, mood, and affect are within normal limits. Vital Signs: 07:35 BP 147 / 88; Pulse 66; Resp 17; Temp 98.3(O); Pulse Ox 98% on R/A; Weight 167.83 kg; vg1 Height 6 ft. 0 in. (182.88 cm); Pain 0/10; 08:00 BP 135 / 70; Pulse 73; Resp 15; Pulse Ox 99% on R/A; vg1 08:30 BP 134 / 99; Pulse 75; Resp 18; Pulse Ox 99% on R/A; vg1 09:00 BP 154 / 96; Pulse 58; Resp 17; Pulse Ox 99% on R/A; vg1 09:30 BP 149 / 65; Pulse 67; Resp 15; Pulse Ox 99% on R/A; vg1 10:00 BP 154 / 98; Pulse 63; Resp 19; Pulse Ox 100% ; vg1 11:00 BP 163 / 98; Pulse 74; Resp 16; Pulse Ox 100% on R/A; vg1 07:35 Body Mass Index 50.18 (167.83 kg, 182.88 cm) vg1 MDM: 12:28 Patient medically screened. kdr 17:26 Data reviewed: vital signs, lab test result(s), radiologic studies. Counseling: I had a kdr detailed discussion with the patient and/or guardian regarding: the historical points, exam findings, and any diagnostic results supporting the discharge/admit diagnosis, lab results, radiology results, the need for outpatient follow up. 04/02 07:52 Order name: Basic Metabolic Panel; Complete Time: 09:17 kdr 04/02 07:52 Order name: CBC with Diff; Complete Time: 09:17 kdr 04/02 07:52 Order name: NT PRO-BNP; Complete Time: 09:17 kdr 04/02 07:52 Order name: Troponin HS; Complete Time: 09:17 kdr 04/02 07:52 Order name: XRAY Chest (1 view); Complete Time: 09:17 kdr 04/02 10:42 Order name: Troponin High Sensitivity: Draw three hours after initial draw.; Complete kdr Time: 12:27 04/02 07:52 Order name: EKG; Complete Time: 07:53 kdr 04/02 07:52 Order name: Cardiac monitoring; Complete Time: 08:08 kdr 04/02 07:52 Order name: EKG - Nurse/Tech; Complete Time: 08:08 kdr 04/02 07:52 Order name: IV Saline Lock; Complete Time: 08:08 kdr 04/02 07:52 Order name: Labs collected and sent; Complete Time: 08:08 kdr 04/02 07:52 Order name: O2 Per Protocol; Complete Time: 08:08 kdr 04/02 10:42 Order name: CT Chest For PE Angio; Complete Time: 11:36 kdr 04/02 07:52 Order name: O2 Sat Monitoring; Complete Time: 08:08 kdr 04/02 08:33 Order name: Labs - recollect needed: recollect green top; Complete Time: 08:45 bd EC:30 Rate is 70 beats/min. Rhythm is irregularly irregular, A fib with No ectopy. QRS [place] kdr is Normal. GA interval is normal. QRS interval is normal. Clinical impression: Atrial Fibrillation. Administered Medications: 11:15 Drug: NS 0.9% 500 ml Route: IV; Rate: bolus; Site: right antecubital; vg1 11:39 Follow up: IV Status: Completed infusion; IV Intake: 500ml vg1 Disposition Summary: 04/02/22 12:28 Discharge Ordered Location: Home kdr Problem: new kdr Symptoms: are resolved kdr Condition: Stable kdr Diagnosis - Orthostatic hypotension kdr - Chest pain, unspecified kdr - Weakness kdr Followup: kdr - With: Private Physician - When: 2 - 3 days - Reason: If symptoms return, Further diagnostic work-up, Recheck today's complaints, Continuance of care, Re-evaluation by your physician Discharge Instructions: - Discharge Summary Sheet kdr - Nonspecific Chest Pain, Adult kdr - Orthostatic Hypotension kdr - Weakness kdr Forms: - Medication Reconciliation Form kdr - Thank You Letter kdr - Work release form ss - School release form bd - Family Work Release bd Signatures: Dispatcher [employer] EDAvril Stover Kevin, MD MD kdr Lisa Arellano RN RN vg1
--- NOTE | 2022-04-02 12:29 | ER ---
Nurse's Notes [facility] Name: Faizan Banegas Age: 51 yrs Sex: Male : 1970 Arrival Date: 04/02/2022 Time: 07:37 Bed 20 Private MD: Diagnosis: Orthostatic hypotension;Chest pain, unspecified;Weakness Presentation: 04/02 07:35 Chief complaint: EMS states: Pt was getting ready for work this morning, had a BM and vg1 got up from sitting position feeling dizzy, lightheaded, CP and SOB. Pt took an aspirin. Pt denies CP/ SOB at this time and stated "Im just feeling really tired now". 07:35 Coronavirus screen: Vaccine status: Patient reports receiving the 2nd dose of the covid vg1 vaccine. Client denies travel out of the [place] in the last 14 days. Ebola Screen: Patient negative for fever greater than or equal to 101.5 degrees Fahrenheit, and additional compatible Ebola Virus Disease symptoms. Initial Sepsis Screen: Does the patient meet any 2 criteria? No. Patient's initial sepsis screen is negative. Does the patient have a suspected source of infection? No. Patient's initial sepsis screen is negative. Risk Assessment: Do you want to hurt yourself or someone else? Patient reports no desire to harm self or others. Onset of symptoms was April 02, 2022. 07:35 Method Of Arrival: EMS: [facility] 07:35 Acuity: CHRISTO 3 vg1 Triage Assessment: 07:37 General: Appears in no apparent distress. uncomfortable, Behavior is calm, cooperative. vg1 Pain: Denies pain. EENT: No signs and/or symptoms were reported regarding the EENT system. Neuro: Level of Consciousness is awake, alert, obeys commands, Oriented to person, place, time, situation, Denies dizziness, headache. Cardiovascular: Denies chest pain, shortness of breath, Patient's skin is warm and dry. Respiratory: Airway is patent Respiratory effort is even, unlabored. GI: Patient currently denies nausea, vomiting. : No signs and/or symptoms were reported regarding the genitourinary system. Derm: Skin is pink, warm \\T\\ dry. Musculoskeletal: Circulation, motion, and sensation intact. Historical: - Allergies: 07:44 No Known Allergies; vg1 - Home Meds: 08:09 Xarelto oral [Active]; Aspirin Oral [Active]; carvedilol oral [Active]; atorvastatin vg1 oral [Active]; telmisartan-hydrochlorothiazide oral [Active]; - PMHx: 07:44 Atrial Fib; Cellulitis; Hypertensive disorder; vg1 - PSHx: 07:44 Gastric Bypass; knee sx; vg1 - Immunization history:: Client reports receiving the 2nd dose of the Covid vaccine. - Social history:: Smoking status: Patient denies any tobacco usage or history of. Screenin:45 Abuse screen: Denies threats or abuse. Nutritional screening: No deficits noted. vg1 Tuberculosis screening: No symptoms or risk factors identified. Fall Risk No fall in past 12 months (0 pts). No secondary diagnosis (0 pts). IV access (20 points). Ambulatory Aid- None/Bed Rest/Nurse Assist (0 pts). Gait- Normal/Bed Rest/Wheelchair (0 pts) Mental Status- Oriented to own ability (0 pts). Total [place] Fall Scale indicates No Risk (0-24 pts). Assessment: 07:45 Reassessment: SEE TRIAGE. vg1 08:49 Reassessment: Patient appears in no apparent distress at this time. No changes from vg1 previously documented assessment. Patient and/or family updated on plan of care and expected duration. Pain level reassessed. Patient is alert, oriented x 3, equal unlabored respirations, skin warm/dry/pink. 09:47 Reassessment: Patient appears in no apparent distress at this time. No changes from vg1 previously documented assessment. Patient and/or family updated on plan of care and expected duration. Pain level reassessed. Patient is alert, oriented x 3, equal unlabored respirations, skin warm/dry/pink. 10:57 Reassessment: Patient appears in no apparent distress at this time. No changes from vg1 previously documented assessment. Patient is alert, oriented x 3, equal unlabored respirations, skin warm/dry/pink. PT TRANSPORTED TO CT VIA WHEELCHAIR Patient denies pain at this time. 12:06 Reassessment: Patient appears in no apparent distress at this time. No changes from vg1 previously documented assessment. Vital Signs: 07:35 BP 147 / 88; Pulse 66; Resp 17; Temp 98.3(O); Pulse Ox 98% on R/A; Weight 167.83 kg; vg1 Height 6 ft. 0 in. (182.88 cm); Pain 0/10; 08:00 BP 135 / 70; Pulse 73; Resp 15; Pulse Ox 99% on R/A; vg1 08:30 BP 134 / 99; Pulse 75; Resp 18; Pulse Ox 99% on R/A; vg1 09:00 BP 154 / 96; Pulse 58; Resp 17; Pulse Ox 99% on R/A; vg1 09:30 BP 149 / 65; Pulse 67; Resp 15; Pulse Ox 99% on R/A; vg1 10:00 BP 154 / 98; Pulse 63; Resp 19; Pulse Ox 100% ; vg1 11:00 BP 163 / 98; Pulse 74; Resp 16; Pulse Ox 100% on R/A; vg1 07:35 Body Mass Index 50.18 (167.83 kg, 182.88 cm) vg1 ED Course: 07:37 Patient arrived in ED. bd 07:37 Rayshawn Moon MD is Attending Physician. kdr 07:37 Arm band placed on. vg1 07:41 Lisa Arellano, RN is Primary Nurse. vg1 07:44 Triage completed. vg1 07:45 Patient has correct armband on for positive identification. Bed in low position. Call vg1 light in reach. Side rails up X2. Adult w/ patient. Client placed on continuous cardiac and pulse oximetry monitoring. NIBP monitoring applied. 08:05 Initial lab(s) drawn, by nc, sent to lab. Inserted saline lock: 20 gauge in right vg1 antecubital area, using aseptic technique. Blood collected. 08:26 XRAY Chest (1 view) In Process Unspecified. EDMS 11:06 CT Chest For PE Angio In Process Unspecified. EDMS 12:58 No provider procedures requiring assistance completed. IV discontinued, intact, vg1 bleeding controlled, No redness/swelling at site. Pressure dressing applied. Administered Medications: 11:15 Drug: NS 0.9% 500 ml Route: IV; Rate: bolus; Site: right antecubital; vg1 11:39 Follow up: IV Status: Completed infusion; IV Intake: 500ml vg1 Medication: 07:45 VIS not applicable for this client. vg1 Intake: 11:39 IV: 500ml; Total: 500ml. vg1 Outcome: 12:28 Discharge ordered by . kdr 12:58 Discharged to home ambulatory, with family. vg1 12:58 Condition: good 12:58 Discharge instructions given to patient, Instructed on discharge instructions, follow up and referral plans. Demonstrated understanding of instructions, follow-up care. 12:58 Patient left the ED. vg1 Signatures: Dispatcher [employer] EDMS Avril Mccray Kevin, MD MD kdr Garcia, Victoria RN RN vg1
[2022-04-02 15:58] VITALS: TEMP 98.3
[2022-04-02 16:16] VITALS: O2SAT 100
[2022-04-02 16:17] VITALS: BP 163/98
--- NOTE | 2022-04-04 05:48 | EKG ---
Test Date: 2022-04-02 Test Time: 07:55:27 Dehydrogenation Operator: MEASUREMENT RESULTS: Intervals: Rate: 70 [place]: QRSD: 96 QT: 426 QTc: 460 [place]: P: IN: QRS: -10 T: 49 INTERPRETIVE STATEMENTS: Atrial fibrillation Anterior infarct, age undetermined Abnormal ECG Compared to ECG 03/25/2022 00:37:01 No significant changes Electronically Signed On 04-04-22 05:45:00 SOLE POLISHER by Duane Sabillon
== END 2022-04-02 12:58 | disposition home or self-care (01) ==
LOC: ER 07:34
DX: I95.1 Orthostatic hypotension (principal); R53.1 Weakness; I10 Essential (primary) hypertension; I48.91 Unspecified atrial fibrillation; Z79.01 Long term (current) use of anticoagulants
CPT/HCPCS: 93005; 85025; 80048; 36415; 84484 ×2; 83880; 71275; 71045; 99284; Q9967; J7040

== ENCOUNTER 2024-02-12 12:24 | Day surgery (SDC) | payer OTHER ==
[2024-02-11 09:51] LABS: Absolute Eosinophils 0.2 K/uL (0-0.5); Absolute Lymphocytes (CBC) 1.4 K/uL (0.7-4.9); Absolute Monocytes 0.3 K/uL (0.1-1.3); Absolute Neutrophil 2.8 K/uL (1.8-8.0); Basophils % 0.5 % (0-1.3); Eosinophils % 4.8 % (0-4.4); Hematocrit 49.6 % (39.6-49.0); Hemoglobin 16.5 g/dL (13.6-17.9); MCH 30.8 pg (27.0-35.0); MCHC 33.3 g/dL (32.0-36.0); MCV 92.7 fL (80-100); MPV 8.5 fL (7.6-11.3); Monocytes % 6.4 % (3.3-12.3); Neutrophils % 58.3 % (41.7-73.7); Nucleated Red Blood Cells % 0.1 % (0-0); Platelets 167 thou/uL (152-406); RBC Red Blood Cell Count 5.35 M/uL (4.33-5.43); Red Cell Distribution Width 13.1 % (12.1-15.2)
[2024-02-11 09:54] LABS: PT Prothrombin Time 18.7 SECONDS (9.4-12.5); PTT, Activated Partial Thromb 40.7 SECONDS (24.3-36.9); Protime INR 1.7
[2024-02-11 10:01] LABS: Anion Gap 5.8 mEq/L (5.0-15.0); Potassium 3.8 mEq/L (3.5-5.1)
--- NOTE | 2024-02-12 11:53 | EKG ---
Test Date: 2024-02-11 Test Time: 09:14:45 Stranding Supervisor: LOLIS MEASUREMENT RESULTS: Intervals: Rate: 56 MD: QRSD: 96 QT: 430 QTc: 414 [place]: P: MD: QRS: 19 T: 47 INTERPRETIVE STATEMENTS: Atrial fibrillation with slow ventricular response Septal infarct, age undetermined Abnormal ECG Compared to ECG 04/02/2022 07:55:27 No significant changes Electronically Signed On 02-12-24 11:51:26 CDT by Bandar Nathan
[2024-02-12] MEDS ORDERED: LIDOCAINE 1% MPF 5 ML VIAL ONE (12:29)
[2024-02-12] MEDS ORDERED: propofoL 200 MG/20 ML VIAL IV ONE (12:29)
[2024-02-12 13:56] VITALS: TEMP 97.9
[2024-02-12 14:00] VITALS: O2SAT 100
[2024-02-12 14:02] VITALS: BP 130/75
--- NOTE | 2024-02-13 08:23 | TEE ---
TRANSESOPHAGEAL ECHOCARDIOGRAM REPORT CARDIOLOGY DEPARTMENT DATE OF STUDY: 02/12/2024 HEIGHT: 6'0" WEIGHT: 360 lbs DIAGNOSIS: ATRIAL FIBRILLATION, CARDIOVERSION VAULT TELLER COMMENTS: RADHA CARDIAC HISTORY: CATHERIZATION: SURGERY: PROSTHETIC VALVE: PACEMAKER: 2 DIMENSIONAL ASSESSMENT: RIGHT ATRIUM: LEFT ATRIUM: RIGHT VENTRICLE: LEFT VENTRICLE: TRICUSPID VALVE: MITRAL VALVE: PULMONIC VALVE: AORTIC VALVE: PERICARDIAL EFFUSION: AORTIC ROOT: EJECTION FRACTION: 55-60% LEFT VENTRICULAR WALL MOTION: DOPPLER/COLOR FLOW: COMMENTS: 1. TRANSESOPHAGEAL ECHOCARDIOGRAM PROBE WAS INSERTED, NO DIFFICULTY 2. NO LEFT ATRIAL APPENDAGE THROMBUS IS SEEN 3. NORMAL LEFT VENTRICULAR EJECTION FRACTION 55-60% 4. MILD MITRAL REGURGITATION TECHNOLOGIST: FADI RODRIGUEZ
--- NOTE | 2024-02-17 13:10 | EKG ---
Test Date: 2024-02-12 Test Time: 13:22:38 Transmitter Chief: MEAGAN MEASUREMENT RESULTS: Intervals: Rate: 65 [place]: QRSD: 88 QT: 408 QTc: 424 [place]: P: [place]: QRS: -67 T: 31 INTERPRETIVE STATEMENTS: Atrial fibrillation Left axis deviation Low voltage QRS Cannot rule out Anteroseptal infarct, age undetermined Abnormal ECG Compared to ECG 02/11/2024 09:14:45 Left-axis deviation now present Low QRS voltage now present Myocardial infarct finding still present Electronically Signed On 02-17-24 12:56:19 CDT by Bandar Nathan
== END 2024-02-12 13:40 | disposition home or self-care (01) ==
LOC: CCL 12:24
PROVIDERS: ATTEND Internal Medicine
DX: I48.91 Unspecified atrial fibrillation (principal); I10 Essential (primary) hypertension
CPT/HCPCS: 93005 ×2; 93312; 85025; 80048; 36415; 85610; 85730; 92960; J2704; J2001; 01922